=== PATIENT | female | born 1975 | race Caucasian/White ===

== ENCOUNTER 2016-12-07 07:30 | Inpatient (IN) | payer MEDICAID ==
[2017-02-02] MEDS ORDERED: cefOXitin 2 GM Vial ONE (06:36)
[2017-02-02] MEDS ORDERED: Scopolamine 1.5 MG Transdermal Patch TOP SCH (10:15)
[2017-02-02] MEDS ORDERED: Gabapentin 300 MG Cap PO ONE (10:15)
[2017-02-02] MEDS ORDERED: Celecoxib 200 MG Cap PO ONE (10:15)
[2017-02-02] MEDS ORDERED: Acetaminophen 500 MG Tab PO ONE (10:15)
[2017-02-02] MEDS ORDERED: Dextrose 5%-Lactated Ringers 1,000 ML IV SCH ×2 (10:45→15:30)
[2017-02-02] MEDS ORDERED: Propofol 200 MG/20 ML SDV ONE (11:10)
[2017-02-02] MEDS ORDERED: Succinylcholine 200 MG/10 ML MDV ONE (11:10)
[2017-02-02] MEDS ORDERED: Glycopyrrolate 0.2 MG/ML 5 ML MDV ONE (11:10)
[2017-02-02] MEDS ORDERED: Dexamethasone 4 MG/ML SDV ONE (11:10)
[2017-02-02] MEDS ORDERED: Neostigmine Methylsulfate 1 MG/ML 5 ML Syringe ONE (11:10)
[2017-02-02] MEDS ORDERED: Rocuronium 50 MG/5 ML Vial ONE ×2 (11:10→12:26)
[2017-02-02] MEDS ORDERED: Ondansetron 4 MG/2 ML SDV ONE (11:10)
[2017-02-02] MEDS ORDERED: Lidocaine 1% 2 ML ONE (11:21)
[2017-02-02] MEDS ORDERED: Lidocaine 2% 100 MG/5 ML Syringe IVPUSH ONE (11:30)
[2017-02-02] MEDS ORDERED: Ketamine 500 MG/5 ML MDV IV SCH (11:30)
[2017-02-02] MEDS ORDERED: Ropivacaine 60 ML, Dexamethasone 8 MG, EPINEPHrine 0.4 MG, Sodium Chloride 0.9% 17.6 ML NERVRT SCH ×4 (11:30)
[2017-02-02] MEDS: cefOXitin 2 GM in Premix Bag 1 BAG IV ONE ×2 (11:37→15:23)
[2017-02-02] MEDS ORDERED: hydrOXYzine HCl 100 MG/2 ML SDV IM ONE (14:15)
[2017-02-02] MEDS: Lidocaine 0.4%/D5W 2 GM/500 ML BAG IV SCH (15:23)
[2017-02-02] MEDS ORDERED: Metoclopramide 10 MG/2 ML SDV IVPUSH PRN (16:00)
[2017-02-02] MEDS ORDERED: SCOPOLAMINE PATCH CHECK TOP SCH (16:00)
[2017-02-02] MEDS ORDERED: Labetalol 20 MG/4 ML Syringe IVPUSH PRN (16:00)
[2017-02-02] MEDS ORDERED: MVI, Adult with Vitamin K 10 ML, Thiamine 200 MG, Chromium/Copper/Mang/Selen/Zn 1 ML in... IV SCH ×4 (16:00)
[2017-02-02] MEDS ORDERED: diphenhydrAMINE 50 MG/ML SDV IVPUSH PRN (16:00)
[2017-02-02] MEDS ORDERED: Ondansetron 4 MG/2 ML SDV IVPUSH PRN (16:00)
[2017-02-02] MEDS ORDERED: Pantoprazole 40 MG Vial IVPUSH SCH (16:00)
[2017-02-02] MEDS ORDERED: hydrOXYzine HCl 100 MG/2 ML SDV IM PRN (16:00)
[2017-02-02] MEDS: Gabapentin 250 MG/5 ML Solution ML 470 ML Bottle PO SCH ×2 (16:06→22:05)
[2017-02-02] MEDS: Acetaminophen Soln 650 MG/20.3 ML UD Cup PO SCH ×2 (16:51→22:05)
[2017-02-02] MEDS: Heparin Sodium 5,000 Units/ML Vial SUBCUT SCH (17:32)
[2017-02-02] MEDS: cefOXitin 2 GM in Sodium Chloride 0.9% 50 ML IV SCH ×2 (17:32→23:22)
[2017-02-03] MEDS: Acetaminophen Soln 650 MG/20.3 ML UD Cup PO SCH ×2 (03:08→09:48)
[2017-02-03] MEDS: Lidocaine 0.4%/D5W 2 GM/500 ML BAG IV SCH (03:11)
[2017-02-03] MEDS: Heparin Sodium 5,000 Units/ML Vial SUBCUT SCH (05:36)
[2017-02-03] MEDS: cefOXitin 2 GM in Sodium Chloride 0.9% 50 ML IV SCH (05:37)
[2017-02-03] MEDS ORDERED: Celecoxib 200 MG Cap PO SCH (08:00)
[2017-02-03] MEDS: Gabapentin 250 MG/5 ML Solution ML 470 ML Bottle PO SCH (09:48)
[2017-02-03 11:07] VITALS: BP 150/83
[2017-02-03] MEDS ORDERED: Pantoprazole 40 MG Delayed-Release Granules 1 Packet PO SCH (16:30)
[2017-02-04] MEDS ORDERED: Cyanocobalamin (Vitamin B12) 1,000 MCG/ML SDV IM ONE (09:00)
--- NOTE | 2017-02-05 08:43 | CR ---
UGI wo KUB HISTORY: eval R -Y GBP FINDINGS: Limited upper GI series was obtained without fluoroscopy. Water-soluble contrast was admini stered orally. Immediate along with 15 minute delayed images were obtained. Small gastric pouch is de monstrated. Contrast passes readily through the gastrojejunostomy into loops of jejunum. No obstructi on is identified. There is no contrast extravasation. Surgical drains are noted left upper quadrant. IMPRESSION: No postoperative complication identified status post Yinka-en-Y gastric bypass.
--- NOTE | 2017-02-05 11:30 | DISCH ---
FINAL DIAGNOSES: 1. Morbid obesity. 2. Marked hepatomegaly. 3. Mediastinal lipoma. 4. Left parasternal diaphragmatic hernia. OTHER DIAGNOSES: 1. Hypercholesterolemia. 2. Obstructive sleep apnea. OPERATIVE PROCEDURE: On 02/02/2017 is a diagnostic laparoscopy with lysis of adhesions with: 1. Laparoscopic sleeve gastrectomy. 2. Rock-Cut needle liver biopsy. 3. Excision of mediastinal lipoma. 4. Repair of the left parasternal diaphragmatic hernia. SUMMARY: This is a 41-year-old female was presenting with longstanding morbid obesity and increasingly significant comorbidities. After preop evaluation and discussion, she wished to proceed with a sleeve gastrectomy. This was done on the date of admission. She had quite a bit in the way of adhesions related to abdominal mesh placement. These were able to be taken down and worked around sufficiently to allow a laparoscopic approach to the procedure. She had fairly marked hepatomegaly, and liver biopsies were obtained and pending. She also had left parasternal diaphragmatic hernia, which contained a lipoma within it, which was excised, along with repair of the hernia. Postoperatively, she had no significant problems. She will be discharged home with a step-2 diet, which she should remain on for the next month. Otherwise, her only medications prior to hospitalization were vitamins and minerals. She will be instructed to hold those until after the first point, and she will be receiving Celebrex and Tylenol as needed for pain postoperatively. Follow up with Lilliana Maciel at [facility] on 02/08/2017.
--- NOTE | 2017-02-06 08:05 | OR ---
DATE OF PROCEDURE: 02/02/2017 PREOPERATIVE DIAGNOSIS: Morbid obesity. POSTOPERATIVE DIAGNOSES: 1. Morbid obesity. 2. Marked hepatomegaly. 3. Mediastinal lipoma. 4. Left parasternal diaphragmatic hernia. OPERATIVE PROCEDURES: Diagnostic laparoscopy with lysis of adhesions and; 1. Laparoscopic sleeve gastrectomy (09388). 2. Rock-Cut needle liver biopsy (19800). 3. Excision of mediastinal lipoma (44660). 4. Repair of left parasternal diaphragmatic hernia (86770). ANESTHESIA: General. SUPERVISOR METAL FURNITURE ASSEMBLY: Lilliana Maciel PA-C. INDICATIONS FOR PROCEDURE: This is a 41-year-old presenting with longstanding morbid obesity and increasingly significant comorbidities. After preoperative evaluation and discussion, she wished to proceed with a laparoscopic sleeve gastrectomy. Potential risks of the procedure including bleeding, infection, injury to underlying viscera, problems with leaks from the staple lines, as well as the possibility of cardiopulmonary, septic, or hemorrhagic complications leading to were discussed, and the patient wishes to proceed. DETAILS OF PROCEDURE: The patient was taken to the operating room and placed in a supine position. After general endotracheal anesthesia was induced, she was converted to a lithotomy position, and the abdomen was prepped and draped. At 15 cm inferior and 5 cm left of the xiphoid process, a transverse incision was made, and the peritoneal cavity entered under direct vision with an Optiview trocar inflated to 15 mmHg pressure with CO2. Laparoscope was reinserted. No underlying trocar insertion site injuries were seen. The area around the trocar was then inspected. The patient was noted to have quite a bit in the way of omental adhesions to the mesh. The camera port trocar had entered at a point just immediately above the level of the mesh. At that point, 2 left subcostal trocars were placed and adhesions between the mesh, as well as the right upper quadrant abdominal wall and the omentum, were taken down with Harmonic scalpel. Once the area was cleared enough to allow sufficient exposure for performance of the sleeve gastrectomy, bilateral subcostal transversus abdominis plane blocks were placed with the point of needle being visualized immediately underneath the peritoneum, i.e. within the transversus abdominis plane, and a standard injection placed bilaterally. Following this, 3 additional trocars were placed across the upper and midabdomen. The patient was noted to have a fairly marked hepatomegaly with liver being grossly fatty infiltrated. Rock-Cut needle biopsy was obtained from the left lobe of the liver. Minimal bleeding from the biopsy sites was controlled. The patient was also noted to have a fairly substantial left parasternal diaphragmatic hernia. This contained some omentum within it. The latter was reduced at this point, and the peritoneum within the parasternal hernia was dissected free. Lipomatous tissue within it was then resected and sent as a separate specimen. A small stab wound was then made superior to the uppermost present trocar, and using the laparoscopic suture passer, the parasternal hernia was closed with a series of 0 Vicryl sutures. Attention was then taken to the sleeve gastrectomy. The omentum along the portion of the greater curvature was then divided with Harmonic scalpel. This continued upward toward the spleen and the short gastric vessels, including the highest posterior short gastric vessels, were divided. Dissection then continued along the uppermost fundus of the stomach along the gastric cardia until the left crura was well defined. No hiatal hernia was identifiable at this point. Further dissection then continued with division of the omentum down at the level of a point around 2 cm proximal to the pylorus, again with a Harmonic scalpel. Some adhesions between the stomach and the retroperitoneum were then divided, so there was good clearance of the tissues behind the stomach through the area of intended gastric resection. At this point, the anterior aspect of the stomach, beginning at 0.2 cm proximal to the pylorus, was marked with electrocautery, extending from a right to left direction. Care was taken to lori the points of division such that there would be no stricturing or overtightening of the stomach at the point of the incisura angularis. Once these were marked out, the first 3 firings of the BROOKLYN stapler using BROOKLYN black loads was accomplished. At each firing, the stomach was elevated to visualize the stomach posteriorly to confirm there was not overtightening of the stomach at the incisura angularis. At that point, a 32- Estonian tube was placed orally per Anesthesia and manipulated along the lesser and greater curvature of the stomach and into the antrum. This was pulled up against the lesser curvature and suction applied. The remainder of the gastrectomy was then accomplished more or less flush with the gastric tube using a combination of reinforced black and purple loads. Once completion of the gastrectomy was accomplished, the staple line was inspected and found to be intact. The staple line was then reinforced with fibrin sealant, focusing on the proximal end at that level. The omentum was then placed up against the gastric staple line, along with fibrin sealant, and the remainder of the gastric staple line was then coated with some fibrin sealant as well and the omentum likewise pulled up against it where it appeared to remain without need for additional suturing. The gastrointestinal balloon catheter at that point had been pulled up to a point where the abdomen was more or less in the distal lesser curvature. Air was injected such that the gastric sleeve was distended while the pylorus was being compressed, and the area was irrigated with antibiotic-containing saline solution. No leaks or bleeding were seen. At that point, the gastrointestinal balloon catheter was then withdrawn. The gastric sleeve specimen was then retrieved through the left lateral trocar site. A single Jose Elias-Moore drain was placed along the proximal end of the sleeve gastrectomy up into the area of the splenic fossa. The trocars were then sequentially removed, and the incision was closed with some 4-0 Vicryl skin stitch, as was the drain affixed with 4-0 Vicryl stitch. The patient was taken to the recovery room in a satisfactory condition. There were no evident complications. Physician quality assurance assistant, Lilliana Maciel, played an essential role in assisting in this case, helping to position the patient, retract structures as needed, as well as suturing and cutting sutures as indicated. Her presence improved patient safety and decreased the operative time. Francisco Ewing MD /[id number]
--- NOTE | 2017-03-05 10:44 | OR ---
DATE OF PROCEDURE: 02/02/2017 PREOPERATIVE DIAGNOSIS: Morbid obesity. POSTOPERATIVE DIAGNOSES: 1. Morbid obesity. 2. Marked hepatomegaly. 3. Mediastinal lipoma. 4. Left parastomal diaphragmatic hernia. OPERATIVE PROCEDURES: Diagnostic laparoscopy with: 1. Laparoscopic sleeve gastrectomy (09828). 2. Rock-Cut needle liver biopsy (18701). 3. Excision of mediastinal lipoma (16594). 4. Repair of chronic left parasternal diaphragmatic hernia (29539). ANESTHESIA: General. AGRICULTURAL SCIENCES PROFESSOR: Lilliana Maciel PA-C. INDICATIONS FOR PROCEDURE: A 41-year-old female presenting with longstanding morbid obesity, increasingly significant comorbidities. After preoperative evaluation and discussion, she wished to proceed with a sleeve gastrectomy. Potential risks of the procedure including bleeding, infection, leaks from the staple lines, as well as possible cardiopulmonary, septic, or hemorrhagic complications leading to were discussed, and the patient wishes to proceed. DETAILS OF PROCEDURE: The patient was taken to the operating room, and after general endotracheal anesthesia was induced, she was placed in a lithotomy position and the abdomen prepped and draped. At 15 cm inferior, 5 cm left of xiphoid process, a transverse incision was made and the peritoneal cavity entered under direct vision with an Optiview trocar inflated to 15 mmHg pressure with CO2. Laparoscope was reinserted. No underlying trocar insertion site injuries were seen. Following this, bilateral subcostal transversus abdominis plane blocks were placed with direct visualization of the needle just inside the peritoneum within the transversus abdominis muscle layer, and standard solution was injected bilaterally. Following this, 5 additional trocars were placed across the upper and mid abdomen and general exploration undertaken. The patient was noted to have marked hepatomegaly with liver volume being grossly 2 to 3 times normal and the liver somewhat fatty infiltrated. Rock-Cut needle biopsies were obtained from left lobe of the liver. Minimal bleeding from the biopsy site was seen. The patient also noted to have a chronic appearing left parasternal hernia. This contained some lipomatous tissue within it. This was at that point incised in terms of the peritoneal surface, and the mediastinal lipoma was dissected free and removed from that area. The parasternal hernia was then repaired by means of laparoscopic suture passers with #1 Vicryl stitch through a small stab wound in the area just to the left of the epigastric trocar site. Once this was completed, we then turned our attention to the sleeve gastrectomy. The omentum was then divided away from the mid greater curvature of the stomach with Harmonic scalpel. This dissection with Harmonic scalpel was continued proximally up along the short gastric vessels, including the highest and posterior short gastric vessels. The attachments to the medial fundus were then dissected free from the left shneg of the diaphragm until the left sheng was well dissected free from the stomach. During the course of the dissection, no hiatal hernia was noted. The dissection then continued distally, dividing the omentum off the stomach down to a point roughly 2 cm proximal to the pylorus, which had previously been marked with electrocautery. At this point, the initial staple line from the point 2 cm proximal to the pylorus, along the antrum, and then underneath the incisura angularis was made with the cautery. Care was taken to avoid overtightening of the incisura angularis. At that point, the first three firings of the gastrectomy staple line were accomplished with BROOK[place]N black loads. Once this was accomplished, then a 32-Icelandic catheter was then placed orally per Anesthesia and manipulated along the lesser curvature and, from there, into the antrum. This was then positioned along the lesser curvature, where suction was applied. The remainder of the sleeve gastrectomy was then accomplished with a series of black and purple reinforced loads. At that point, the gastrectomy was completed and the specimen mobilized downward and toward the left. At that point, fibrin sealant was placed along the proximal end of the staple line and the omentum was then placed at that level and secured there with some 3-0 Vicryl stitch. Additional fibrin sealant was then placed across the antral staple line and to a lesser extent along the remainder of the staple line, and the omentum was pulled up where it adhered to the staple line and fibrin sealant. Leak test was then accomplished with injection of air into the remaining stomach while the pylorus was compressed, and the area was then irrigated with antibiotic-containing saline solution. No leaks or bleeding were seen. At this point, the stomach was delivered through the left lateral trocar site, and a Jose Elias- Moore drain was placed through that trocar site as well, positioned up against the proximal stent of the gastrectomy staple line, and from there into the splenic fossa. The trocars were then sequentially removed and the peritoneal cavity deflated. Incisions were closed with some 4-0 Vicryl skin stitch and drains affixed with a 4-0 Vicryl skin stitch. Dressing was applied. The patient was taken to the recovery room in satisfactory condition. Physician automotive parts counter assistant, Lilliana Maciel, played an essential role in assisting in this case, helping to position the patient, retract structures as needed, as well as suturing and cutting sutures when indicated. Her presence improved the patient safety and decreased the operative time. Francisco Ewing MD /[id number]
== END 2017-02-03 11:35 | disposition home or self-care (01) | DRG 620 ==
LOC: EDSTATUS 02-02 07:30 → JP.SDSSCHI 02-02 09:46 → JP.SDS 02-02 09:46 → JP.2SS 02-02 14:00
PROVIDERS: ADMIT Surgery; ATTEND Surgery
PROC: 0DB64Z3 Excision of Stomach, Percutaneous Endoscopic Approach, Vertical (ICD-10-PCS; principal; 2017-02-02)
PROC: 0WBC4ZX Excision of Mediastinum, Percutaneous Endoscopic Approach, Diagnostic (ICD-10-PCS; 2017-02-02)
PROC: 0BQT4ZZ Repair Diaphragm, Percutaneous Endoscopic Approach (ICD-10-PCS; 2017-02-02)
PROC: 0FB24ZX Excision of Left Lobe Liver, Percutaneous Endoscopic Approach, Diagnostic (ICD-10-PCS; 2017-02-02)
PROC: 3E0T3BZ Introduction of Anesthetic Agent into Peripheral Nerves and Plexi, Percutaneous Approach (ICD-10-PCS; 2017-02-02)
DX: E66.01 Morbid (severe) obesity due to excess calories (principal); K44.0 Diaphragmatic hernia with obstruction, without gangrene; Z68.43 Body mass index [BMI] 50.0-59.9, adult; R16.0 Hepatomegaly, not elsewhere classified; D17.4 Benign lipomatous neoplasm of intrathoracic organs; E78.00 Pure hypercholesterolemia, unspecified; G47.33 Obstructive sleep apnea (adult) (pediatric); Z88.8 Allergy status to other drugs, medicaments and biological substances
CPT/HCPCS: 36415; 74240; 74240-26; 82962; 86850; 86900; 86901; 88304; 88307; 88313; A9270-GY; C9113; J0171; J0330; J0694; J1100; J1644; J2001; J2405; J2704; J2710; J2795; J3010; J3410; J3411; J7030; J7042; J7050

== ENCOUNTER 2018-12-19 05:22 | Inpatient (IN) | payer MEDICAID ==
[2018-12-19] MEDS ORDERED: Acetaminophen 500 MG Tab PO ONE (05:45)
[2018-12-19] MEDS ORDERED: Dextrose 5%-Lactated Ringers 1,000 ML IV SCH (06:30)
[2018-12-19] MEDS ORDERED: Meropenem 500 MG SDV ONE (06:46)
[2018-12-19] MEDS ORDERED: Bupivacaine 0.5%/EPINEPHrine 1:200,000 50 ML MDV ONE (06:46)
[2018-12-19] MEDS ORDERED: Neostigmine Methylsulfate 1 MG/ML 5 ML Syringe ONE (06:58)
[2018-12-19] MEDS ORDERED: Glycopyrrolate 0.2 MG/ML 5 ML MDV ONE (06:58)
[2018-12-19] MEDS ORDERED: fentaNYL 250 MCG/5 ML SDV ONE (06:58)
[2018-12-19] MEDS ORDERED: Ondansetron 4 MG/2 ML SDV ONE (06:58)
[2018-12-19] MEDS ORDERED: Dexamethasone 4 MG/ML SDV ONE (06:58)
[2018-12-19] MEDS ORDERED: Succinylcholine 200 MG/10 ML MDV ONE (06:58)
[2018-12-19] MEDS ORDERED: Rocuronium 50 MG/5 ML Vial ONE (06:58)
[2018-12-19] MEDS ORDERED: Propofol 200 MG/20 ML SDV ONE (06:58)
[2018-12-19] MEDS ORDERED: ceFAZolin 2 GM in Sodium Chloride 0.9% 50 ML IV ONE (07:15)
[2018-12-19] MEDS ORDERED: Ketamine 50 MG in Sodium Chloride 0.9% 49.5 ML IV SCH (07:30)
[2018-12-19] MEDS ORDERED: Ketamine 500 MG/5 ML MDV IV SCH (07:30)
[2018-12-19] MEDS ORDERED: Lactated Ringers 1,000 ML ONE (08:08)
[2018-12-19] MEDS ORDERED: Lidocaine 0.5% 50 ML SDV ONE (08:12)
[2018-12-19] MEDS ORDERED: hydrOXYzine HCl 100 MG/2 ML SDV IM ONE (09:09)
[2018-12-19] MEDS ORDERED: Morphine 4 MG/ML Syringe IVPUSH PRN (09:47)
[2018-12-19] MEDS ORDERED: Ondansetron 4 MG/2 ML SDV IVPUSH PRN (09:47)
[2018-12-19] MEDS ORDERED: Morphine 2 MG/ML Syringe IVPUSH PRN (09:47)
[2018-12-19] MEDS ORDERED: oxyCODONE 5 MG Tab PO PRN (09:48)
[2018-12-19] MEDS: Dextrose 5%-Lactated Ringers 1,000 ML IV SCH ×2 (11:08→20:36)
[2018-12-19] MEDS: Acetaminophen 325 MG Tab PO PRN ×3 (11:38→23:40)
[2018-12-19] MEDS ORDERED: Sodium Ferric Gluconate Cmplex 250 MG in Sodium Chloride 0.9% 100 ML IV SCH (12:00)
[2018-12-19] MEDS: Pantoprazole 40 MG Tab.CR PO SCH (12:29)
[2018-12-19] MEDS: ceFAZolin 2 GM in Sodium Chloride 0.9% 50 ML IV SCH ×2 (14:13→22:15)
[2018-12-20] MEDS: Dextrose 5%-Lactated Ringers 1,000 ML IV SCH (03:56)
[2018-12-20] MEDS: ceFAZolin 2 GM in Sodium Chloride 0.9% 50 ML IV SCH (05:33)
[2018-12-20] MEDS: Pantoprazole 40 MG Tab.CR PO SCH (07:09)
[2018-12-20 07:16] VITALS: BP 108/60; PULSE 63
[2018-12-20] MEDS: Acetaminophen 325 MG Tab PO PRN (07:21)
[2018-12-20] MEDS ORDERED: Magnesium Hydroxide 400 MG/5 ML Susp 30 ML Cup PO ONE (08:09)
--- NOTE | 2018-12-20 08:50 | DISCH ---
ADMISSION DIAGNOSES: 1. Recurrent incarcerated incisional hernia. 2. Bony prominence, mid forehead. 3. Iron deficiency anemia. 4. Status post sleeve gastrectomy. 5. Vitamin B12 deficiency. DISCHARGE DIAGNOSES: 1. Diagnostic laparoscopy with lysis of adhesions. 2. Repair of recurrent incisional hernia with mesh. 3. Placement of Vicryl mesh. 4. Excision of bony prominence lesion, mid forehead. Date of surgery: 12/19/2018. Surgeon: Francisco Ewing MD. HISTORY: Rafaela Jaquez is a 43-year-old female with recurrent incisional hernia, mid abdomen, and a bony prominence lesion, mid forehead. After preoperative evaluation and discussion of possible risks and possible complications, she wished to proceed with surgical procedure. HOSPITAL COURSE: Rafaela had her surgery on 12/19/2018. She had no operative complications. She did receive iron infusions x2 while in the hospital. On postoperative day #1, she was able to be discharged to home with no complications. PHYSICAL EXAMINATION: GENERAL: Rafeala Jaquez is a 43-year-old female. VITAL SIGNS: Height is 5 feet 6 inches, weight is 247 pounds, BMI is 39.9. TPR 97.3, 63, 18, blood pressure 108/60. HEENT: Negative. NECK: Supple. HEART: Regular rate and rhythm. LUNGS: Clear. ABDOMEN: Dressings dry and intact. Abdominal binder is on. EXTREMITIES: Without peripheral edema. DISPOSITION: Discharged to home. CONDITION: Stable and improving. FOLLOWUP: Followup appointment with Lilliana Maciel PA-C, on 12/27/2018 at 11 a.m. HOME MEDICATIONS: 1. Oxycodone 5 mg every 6 hours p.r.n. pain, #28. 2. Milk of magnesia 30 mL, two were sent to home with the patient. She is to resume her home medications. DIET: Usual diet as tolerated. Drink 8 to 10 glasses of water a day. ACTIVITY: No lifting greater than 10 pounds for 6 weeks. Walk at least 6 times daily inside your home. Driving: Do not drive while on pain medication and for 1 week. Shower/bathing: May shower. DISCHARGE INSTRUCTIONS: Keep operative site clean and dry. Wound incision care. Wear abdominal binder with a pressure dressing over hernia site for 6 weeks. Notify provider if any fever, increased pain, swelling, redness, drainage, nausea, vomiting. SPECIAL INSTRUCTIONS: Use incentive spirometer 10 times every hour while awake for 1 week.
--- NOTE | 2018-12-30 10:58 | OR ---
DATE OF PROCEDURE: 12/19/2018 SURGEON: Francisco Ewing MD PREOPERATIVE DIAGNOSES: 1. Recurrent incisional hernia. 2. Prominent mass, right forehead area. POSTOPERATIVE DIAGNOSES: 1. Recurrent incisional hernia. 2. Bony prominence of right forehead area emanating from underlying skull. OPERATIVE PROCEDURES: Diagnostic laparoscopy with lysis of extensive adhesions: 1. Repair of recurrent incisional hernia with mesh (80785). 2. Placement of Vicryl mesh to limit recurrent adhesion formation between pelvic and abdominal wall, newly placed mesh, and underlying viscera ([id number]). 3. Excision of bony prominence, skull, right mid forehead ([id number]). ANESTHESIA: General. CHIEF RADIATION THERAPIST: Lilliana Maciel PA-C. INDICATIONS FOR PROCEDURE: This is a 43-year-old presenting with recurrent incisional hernia located in the area of the stomach to the right and above the umbilicus. She also has a mass, which initially appeared to be more soft tissue, based on limited mobility in the forehead just to the right of the midline. Plan is to proceed with diagnostic laparoscopy, laparotomy if necessary, and repair of the incisional hernia with mesh. Potential risks of that procedure including bleeding, infection, injury to underlying viscera, problems with mesh becoming infected or the hernia recurring were all reviewed, and the patient wishes to proceed. Additionally, potential risks of the excision of the mass in the forehead area were similarly gone over, including bleeding, infection, possible recurrence of lesion, and the patient wishes to proceed. DETAILS OF PROCEDURE: The patient was taken to the operating room and placed in a supine position. After general endotracheal anesthesia was induced, the abdomen was prepped and draped, and Neri catheter was inserted. At that point, the abdomen was entered from the left lateral site with Optiview trocar and peritoneal cavity inflated to 15 mmHg pressure with CO2. Three additional trocars were then placed, these being 5 mm trocars in the left abdomen and the patient was noted to have quite a bit in the way of adhesions to the previously placed mesh. These were taken down with Harmonic Scalpel, and at that point, the patient was noted to have recurrent hernia to the right of the previously placed mesh in the epigastric area. At that point, a 20.[address] mesh was selected and, after being soaked in antibiotic-containing saline solution, placed into the peritoneal cavity. A small stab wound over the center of the recurrent hernia was then made and the balloon catheter of the mesh system was pulled up through the abdominal wall and the balloon inflated. The mesh was then fixed circumferentially with 2 rows of absorbable tacking screws. The balloon catheter was then deflated and withdrawn. There appeared to be good fixation of the mesh in all directions. To limit recurrent adhesion formation between the two segments of mesh now present, a 12 inch segment of Vicryl mesh was placed underneath these areas, as well as down into the lower abdominal and pelvic hammer, thus displacing the small bowel and other viscera from those surfaces. Following this, the trocars were then removed. The fascia at the 12 mm site was closed with 0 Vicryl stitch and the skin with 4-0 Vicryl skin stitch and dressing applied. Attention was then taken to mass effect in the forehead area in one of the pre-existing skin creases. A transverse incision was made, carried down through the skin and subcutaneous tissue. The mass was then noted to be some exophytic bone. Soft tissues around this were then dissected down to the level of the adjacent skull surface and this bone excised with rongeurs to the point where it was essentially flush with the surrounding surface of the skull. The area of excision did not appear to get deeper than the bony surface, i.e. did not enter into the layers below that level. This area was then irrigated with antibiotic- containing saline solution as well and the soft tissues were approximated with some 4-0 Vicryl stitch deep and then a 6-0 Vicryl subcuticular stitch. Steri-Strip was applied. The patient was taken to the recovery room in satisfactory condition. Physician players assistant, Lilliana Maciel, played an essential role in assisting in this case, helping to position the patient, retract structures as needed, as well as suturing and cutting sutures when indicated. Her presence improved patient safety and decreased operative time. Francisco Ewing MD /[id number]
== END 2018-12-20 10:03 | disposition home or self-care (01) | DRG 354 ==
LOC: JP.SDS 05:22 → JP.SDSSCHI 05:22 → EDSTATUS 08:15 → JP.MS 09:00
PROVIDERS: ADMIT Surgery; ATTEND Surgery
PROC: 0WUF4JZ Supplement Abdominal Wall with Synthetic Substitute, Percutaneous Endoscopic Approach (ICD-10-PCS; principal; 2018-12-19)
PROC: 0NB00ZZ Excision of Skull, Open Approach (ICD-10-PCS; 2018-12-19)
PROC: 3E0M45Z Introduction of Adhesion Barrier into Peritoneal Cavity, Percutaneous Endoscopic Approach (ICD-10-PCS; 2018-12-19)
DX: K43.0 Incisional hernia with obstruction, without gangrene (principal); K90.9 Intestinal malabsorption, unspecified; D50.9 Iron deficiency anemia, unspecified; E53.8 Deficiency of other specified B group vitamins; M89.9 Disorder of bone, unspecified; E78.00 Pure hypercholesterolemia, unspecified; G47.33 Obstructive sleep apnea (adult) (pediatric); E66.01 Morbid (severe) obesity due to excess calories; E55.9 Vitamin D deficiency, unspecified; E53.9 Vitamin B deficiency, unspecified; R22.0 Localized swelling, mass and lump, head; K21.9 Gastro-esophageal reflux disease without esophagitis; I49.9 Cardiac arrhythmia, unspecified; F17.200 Nicotine dependence, unspecified, uncomplicated; Z98.84 Bariatric surgery status; Z79.899 Other long term (current) drug therapy; Z88.8 Allergy status to other drugs, medicaments and biological substances; Z99.81 Dependence on supplemental oxygen; Z68.39 Body mass index [BMI] 39.0-39.9, adult
CPT/HCPCS: 88304; 88311; 94762; A9270-GY; C1713; C1781; J0171; J0330; J0690; J1100; J2001; J2020; J2185; J2405; J2704; J2710; J2795; J2916; J3010; J3410; J3490; J7030; J7042; J7050; J7120

== ENCOUNTER 2018-12-29 06:27 | Emergency (ER) | payer MEDICAID ==
[2018-12-29 06:41] VITALS: BP 116/67; PULSE 74
[2018-12-29] MEDS ORDERED: Famotidine 20 MG Tab PO ONE (06:56)
[2018-12-29] MEDS ORDERED: predniSONE 20 MG Tab PO ONE (06:56)
[2018-12-29] MEDS ORDERED: diphenhydrAMINE 25 MG Cap PO ONE (07:00)
--- NOTE | 2018-12-29 07:05 | EDM.PDOC ---
ED HPI GENERAL MEDICAL PROBLEM - General Chief Complaint: Skin Complaint Stated Complaint: ITCHING HANDS AND FEET Time Seen by Provider: 12/29/18 06:50 Source of Information: Reports: Patient, Old Records, RN History Limitations: Reports: No Limitations - History of Present Illness INITIAL COMMENTS - FREE TEXT/NARRATIVE: 43 yo female presents with itchy palms and to a lesser degree itchy soles since this past Sunday. She has no rash anywhere or itching anywhere else. No difficulty breathing or swallowing. No hx of the same. Had taken a single dose of oxycodone after surgery, a week before this itching began only. Last took 50 mg of diphenhydramine about 4 hrs ago and it made her very sleepy and only barely took the edge off her itching. Onset: Gradual Onset Date: 12/27/18 Duration: Day(s): (3), Constant Location: Reports: Other (hands/feet only) Quality: Reports: Other (itching) Severity: Moderate Improves with: Reports: Medication (Benedryl helps only slightly) Worsens with: Reports: Other (unknown) Context: Reports: Other (Recent surgery) Associated Symptoms: Reports: No Other Symptoms Treatments HAND TWISTER: Reports: Other (see below) (Benedryl 50 mg 4 hrs ago) - Related Data Allergies Allergy/AdvReac Type Severity Reaction Status Date / Time hydromorphone HCl AdvReac Intermediate Nausea Verified 12/29/18 06:39 [From Dilaudid] Home Meds: Home Meds Cyanocobalamin (Vitamin B-12) [Vitamin B-12] 2,000 mcg SL DAILY 01/31/17 [ History] Pediatric Multivitamin Comb#30 [Gummies Children Multivitamin] 1 tab PO BID [History] Cholecalciferol (Vitamin D3) [Vitamin D] 5,000 unit PO .MWF 12/18/18 [History] Omeprazole Magnesium [Prilosec Otc] 40 mg PO DAILY 12/18/18 [History] Acetaminophen [Tylenol] 650 mg PO Q4H PRN tablet 12/20/18 [Rx] Magnesium Hydroxide [Milk of Magnesia] 30 ml PO DAILY PRN #2 ml 12/20/18 [Rx] oxyCODONE 5 mg PO Q6H PRN #28 tablet 12/20/18 [Rx] hydrOXYzine HCl [Atarax] 25 - 75 mg PO Q6H PRN #60 tab 12/29/18 [Rx] predniSONE [Prednisone] 20 mg PO BID #10 tablet 12/29/18 [Rx] Past Medical History HEENT History: Reports: Impaired Vision Respiratory History: Reports: Sleep Apnea Gastrointestinal History: Reports: GERD, Hiatal Hernia Genitourinary History: Reports: None HEALTH AND PHYSICAL EDUCATION TEACHER History: Reports: Other HEALTH AND PHYSICAL EDUCATION TEACHER 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 tied Musculoskeletal History: Reports: None Endocrine/Metabolic History: Reports: Obesity/BMI 30+ Hematologic History: Reports: Iron Deficiency - Infectious Disease History Infectious Disease History: Reports: Chicken Pox - Past Surgical History HEENT Surgical History: Reports: None Respiratory Surgical History: Reports: None GI Surgical History: Reports: Bariatric Procedure, Hernia Repair/Other, Other ( See Below) Other GI Surgeries/Procedures: umbilical fatty mass removed Female Surgical History: Reports: Tubal Ligation Endocrine Surgical History: Reports: None Musculoskeletal Surgical History: Reports: Carpal Tunnel Social & Family History - Family History Family Medical History: Noncontributory : Reports: Renal Calculus Oncologic: Reports: Lung - Tobacco Use Smoking Status *Q: Current Every Day Smoker Years of Tobacco use: 24 Packs/Tins Daily: 1 - Caffeine Use Caffeine Use: Reports: Coffee - Recreational Drug Use Recreational Drug Use: No ED ROS GENERAL - Review of Systems Review Of Systems: ROS reveals no pertinent complaints other than HPI. Constitutional: Reports: No Symptoms Skin: Reports: Pruritis (hands/feet bilaterally) ED EXAM, SKIN/RASH Exam: See Below Exam Limited By: No Limitations General Appearance: Alert, WD/WN, No Apparent Distress Eye Exam: Bilateral Eye: Normal Inspection Ears: Hearing Grossly Normal Nose: Normal Inspection, No Blood Throat/Mouth: Normal Inspection, Normal Lips, Normal Oropharynx, Normal Voice Neck: Normal Inspection Respiratory/Chest: No Respiratory Distress, Lungs Clear, Normal Breath Sounds, No Accessory Muscle Use Cardiovascular: Regular Rate, Rhythm, No Edema Back Exam: Normal Inspection Extremities: Normal Inspection, Normal Range of Motion, Non-Tender, No Pedal Edema Neurological: Alert, Oriented, CN II-XII Intact, Normal Cognition, No Motor/ Sensory Deficits Psychiatric: Normal Affect, Normal Mood Skin: Warm, Dry, Intact, Normal Color, No Rash Location, Skin: Upper Extremity, Right, Upper Extremity, Left, Lower Extremity, Right, Lower Extremity, Left Characteristics: Other (nothing visible) Course - Vital Signs Last Recorded V/S: Last Vital Signs Temp 36.7 C 12/29/18 06:40 Pulse 74 12/29/18 06:40 Resp 18 12/29/18 06:40 BP 116/67 12/29/18 06:40 Pulse Ox 98 12/29/18 06:40 - Orders/Labs/Meds Meds: Medications Discontinued Medications Generic Name Dose Route Start Last Admin Trade Name Freq PRN Reason Stop Dose Admin Famotidine 40 mg 12/29/18 06:56 Pepcid PO 12/29/18 06:57 ONETIME ONE Prednisone 20 mg 12/29/18 06:56 Prednisone PO 12/29/18 06:57 ONETIME ONE Departure - Departure Time of Disposition: 07:13 Disposition: Home, Self-Care 01 Condition: Good Clinical Impression: Palmar pruritus - Discharge Information *PRESCRIPTION DRUG MONITORING PROGRAM REVIEWED*: No *COPY OF PRESCRIPTION DRUG MONITORING REPORT IN PATIENT SUKHI: No Prescriptions: hydrOXYzine HCl [Atarax] 25 - 75 mg PO Q6H PRN #60 tab PRN Reason: Allergies predniSONE [Prednisone] 20 mg PO BID #10 tablet Referrals: Chata Krishnan CNM [Primary Care Provider] - Additional Instructions: Take prednisone as directed to try to stop the itching. Use the hydroxyzine as needed for itching. Take famotidine 20 mg every 12 hrs starting tomorrow morning as needed. Keep a diary of foods you have eaten since onset of your symptoms. Recheck later this week in the clinic if your symptoms persist. Return for difficulty breathing or swallowing.
== END 2018-12-29 07:24 | disposition home or self-care (01) ==
LOC: JP.ED 06:27
DX: L29.9 Pruritus, unspecified (principal); F17.210 Nicotine dependence, cigarettes, uncomplicated
CPT/HCPCS: 99282; A9270

== ENCOUNTER 2019-08-15 07:09 | Inpatient (IN) | payer MEDICAID ==
[2019-08-15] MEDS ORDERED: Morphine 4 MG/ML Syringe IVPUSH ONE ×2 (07:48→10:48)
[2019-08-15] MEDS ORDERED: Ondansetron 4 MG/2 ML SDV IVPUSH ONE ×2 (07:48→08:49)
[2019-08-15] MEDS ORDERED: Sodium Chloride 0.9% 1,000 ML IV ONE ×2 (07:49→08:39)
--- NOTE | 2019-08-15 07:58 | EDM.PDOC ---
ED HPI GENERAL MEDICAL PROBLEM - General Chief Complaint: Abdominal Pain Stated Complaint: ABD PAIN Time Seen by Provider: 08/15/19 07:40 Source of Information: Reports: Patient, RN History Limitations: Reports: No Limitations - History of Present Illness INITIAL COMMENTS - FREE TEXT/NARRATIVE: 44 yo female patient comes to the ED with c/o supraumbilical abd pain that started last evening about 1900. She was able to eat some pizza for supper about 1700 last night. The pain is constant and sharp and she rates it 9/10. Rafaela has a history of a gastric sleeve in 2018 and a hernia repair in 2019. She still has her gallbladder. The pain that she is experiencing is similar to the pain she felt with her previous hernia. She states that she had a normal BM this morning and that she is passing gas. She tried 975mg of tylenol last evening about 23:30 that did not help at all. Rafaela states that she has nausea and vomiting. Denies any blood in her emesis. Denies any urinary or respiratory symptoms. Denies chest pain or history of cardiac problems. 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 Abdominal Pain Score (Numeric/FACES): 9 - Related Data Allergies Allergy/AdvReac Type Severity Reaction Status Date / Time hydromorphone HCl AdvReac Intermediate Nausea Verified 12/29/18 06:39 [From Dilaudid] Home Meds: Home Meds Cyanocobalamin (Vitamin B-12) [Vitamin B-12] 2,000 mcg SL DAILY 01/31/17 [History] Pediatric Multivitamin Comb#30 [Gummies Children Multivitamin] 1 tab PO BID 01/31/17 [History] Cholecalciferol (Vitamin D3) [Vitamin D] 5,000 unit PO .MWF 12/18/18 [History] Omeprazole Magnesium [Prilosec Otc] 40 mg PO DAILY 12/18/18 [History] Acetaminophen [Tylenol] 650 mg PO Q4H PRN tablet 12/20/18 [Rx] Past Medical History HEENT History: Reports: Impaired Vision Respiratory History: Reports: Sleep Apnea Gastrointestinal History: Reports: GERD, Hiatal Hernia Genitourinary History: Reports: None 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 COLLECTIONS DRIVER 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 tied Musculoskeletal History: Reports: None Endocrine/Metabolic History: Reports: Obesity/BMI 30+ Hematologic History: Reports: Iron Deficiency - Infectious Disease History Infectious Disease History: Reports: Chicken Pox - Past Surgical History HEENT Surgical History: Reports: None Respiratory Surgical History: Reports: None GI Surgical History: Reports: Bariatric Procedure, Hernia Repair/Other, Other (See Below) Other GI Surgeries/Procedures: umbilical fatty mass removed Female Surgical History: Reports: Tubal Ligation Endocrine Surgical History: Reports: None Musculoskeletal Surgical History: Reports: Carpal Tunnel Social & Family History - Family History Family Medical History: Noncontributory : Reports: Renal Calculus Oncologic: Reports: Lung - Tobacco Use Smoking Status *Q: Heavy Tobacco Smoker Years of Tobacco use: 20 Packs/Tins Daily: 1 - Caffeine Use Caffeine Use: Reports: Coffee - Recreational Drug Use Recreational Drug Use: No ED ROS GENERAL - Review of Systems Review Of Systems: See Below Constitutional: Reports: Decreased Appetite HEENT: Reports: No Symptoms Respiratory: Reports: No Symptoms Cardiovascular: Reports: No Symptoms Endocrine: Reports: No Symptoms GI/Abdominal: Reports: Abdominal Pain, Diarrhea, Decreased Appetite, Flatus, Nausea, Vomiting : Reports: No Symptoms Musculoskeletal: Reports: No Symptoms Skin: Reports: No Symptoms Neurological: Reports: No Symptoms Psychiatric: Reports: No Symptoms Hematologic/Lymphatic: Reports: No Symptoms Immunologic: Reports: No Symptoms ED EXAM, GI/ABD - Physical Exam Exam: See Below Exam Limited By: No Limitations General Appearance: Alert, WD/WN, Moderate Distress Head: Atraumatic, Normocephalic Neck: Normal Inspection Respiratory/Chest: No Respiratory Distress, Lungs Clear, Normal Breath Sounds, Chest Non-Tender Cardiovascular: Regular Rate, Rhythm, No Gallop, No Murmur GI/Abdominal Exam: Guarding, Tender (supraumbilical), Abnormal Bowel Sounds (absent), Other (area of firmness noted to the supraumbilical region. ) (Female) Exam: Deferred Back Exam: Normal Inspection Extremities: Normal Inspection Neurological: Alert, Oriented, Normal Cognition Psychiatric: Normal Affect, Normal Mood Skin Exam: Other (clammy) EKG INTERPRETATION EKG Date: 08/15/19 Time: 09:21 Rhythm: NSR EKG Interpretation Comments: no acute concerns with EKG Course - Vital Signs Last Recorded V/S: Last Vital Signs Temp 94.4 F L 08/15/19 07:27 Pulse 61 08/15/19 07:27 Resp 17 08/15/19 07:27 BP 131/77 08/15/19 07:27 Pulse Ox 96 08/15/19 07:27 - Orders/Labs/Meds Orders: Active Orders 24 hr Category Date Time Status EKG Documentation Completion [RC] ASDIRECTED Care 08/15/19 09:12 Active Dextrose 5%-Lactated Ringers 1,000 ml Med 08/15/19 10:45 Active IV ASDIRECTED Ondansetron [Zofran] Med 08/15/19 12:00 Active 4 mg IVPUSH Q4H PRN Pantoprazole [ProTONIX IV] Med 08/15/19 21:00 Active 40 mg IV Q12H NG [Nasogastric Orogastric Tube Insertion] [OM.PC] Ot 08/15/19 10:16 Ordered Routine EKG 12 Lead [EK] Routine Ther 08/15/19 09:11 Ordered Medication Orders Dextrose/Lactated Ringer's (Dextrose 5%-Lactated Ringers) 1,000 mls @ 150 mls/hr IV ASDIRECTED ALISA Ondansetron HCl (Zofran) 4 mg IVPUSH Q4H PRN PRN Reason: Nausea Pantoprazole Sodium (Protonix Iv) 40 mg IV Q12H [facility] Labs: Laboratory Tests 08/15/19 08/15/19 08/15/19 Range/Units 08:01 08:01 09:48 WBC 8.3 (4.5-11.0) K/uL RBC 5.02 (3.30-5.50) M/uL Hgb 14.4 (12.0-15.0) g/dL Hct 44.2 (36.0-48.0) % MCV 88 (80-98) fL MCH 29 (27-31) pg MCHC 33 (32-36) % Plt Count 183 (150-400) K/uL Sodium 138 L (140-148) mmol/L Potassium 4.6 (3.6-5.2) mmol/L Chloride 103 (100-108) mmol/L Carbon Dioxide 23 (21-32) mmol/L Anion Gap 16.6 H (5.0-14.0) mmol/L BUN 21 H D (7-18) mg/dL Creatinine 0.9 (0.6-1.0) mg/dL Est Cr Clr Drug Dosing 71.03 mL/min Estimated GFR (MDRD) > 60 (>60) Glucose 141 H (74-106) mg/dL Calcium 9.4 (8.5-10.1) mg/dL Total Bilirubin 0.4 (0.2-1.0) mg/dL AST 29 (15-37) U/L ALT 26 (12-78) U/L Alkaline Phosphatase 40 L (46-116) U/L C-Reactive Protein 0.10 (0.0-0.3) mg/dL Total Protein 7.9 (6.4-8.2) g/dL Albumin 4.3 (3.4-5.0) g/dL Globulin 3.6 H (2.3-3.5) g/dL Albumin/Globulin Ratio 1.2 (1.2-2.2) Urine Color Yellow (YELLOW) Urine Appearance Clear (CLEAR) Urine pH 7.0 (5.0-8.0) Ur Specific Mustang 1.015 (1.008-1.030) Urine Protein Negative (NEGATIVE) mg/dL Urine Glucose (UA) Negative (NEGATIVE) mg/dL Urine Ketones Negative (NEGATIVE) mg/dL Urine Occult Blood Negative (NEGATIVE) Urine Nitrite Negative (NEGATIVE) Urine Bilirubin Negative (NEGATIVE) Urine Urobilinogen 0.2 (0.2-1.0) EU/dL Ur Leukocyte Esterase Negative (NEGATIVE) Urine RBC 0-5 (0-5) Urine WBC 0-5 (0-5) Ur Epithelial Cells Moderate Amorphous Sediment Not seen Urine Bacteria Rare Urine Mucus Moderate Meds: Medications Generic Name Dose Route Start Last Admin Trade Name Freq PRN Reason Stop Dose Admin Dextrose/Lactated Ringer's 1,000 mls @ 150 mls/hr 08/15/19 10:45 Dextrose 5%-Lactated Ringers IV ASDIRECTED ALISA Ondansetron HCl 4 mg 08/15/19 12:00 Zofran IVPUSH Q4H PRN Nausea Pantoprazole Sodium 40 mg 08/15/19 21:00 Protonix Iv IV Q12H ALISA Discontinued Medications Generic Name Dose Route Start Last Admin Trade Name Stacy PRN Reason Stop Dose Admin Sodium Chloride 1,000 mls @ 999 mls/hr 08/15/19 07:49 08/15/19 07:56 Normal Saline IV 08/15/19 08:49 999 mls/hr .BOLUS ONE Administration Sodium Chloride 1,000 mls @ 999 mls/hr 08/15/19 08:39 08/15/19 09:08 Normal Saline IV 08/15/19 09:39 999 mls/hr .BOLUS ONE Administration Sodium Chloride 100 mls @ 3 mls/sec 08/15/19 09:00 08/15/19 09:01 Normal Saline IV 3 mls/sec ASDIRECTED ALISA Administration Iopamidol 150 ml 08/15/19 08:51 08/15/19 09:01 Isovue-300 (61%) IV 08/15/19 08:52 150 ml ONETIME ONE Administration Morphine Sulfate 2 mg 08/15/19 07:48 08/15/19 07:57 Morphine IVPUSH 08/15/19 07:49 2 mg ONETIME ONE Administration Ondansetron HCl 4 mg 08/15/19 07:48 08/15/19 07:55 Zofran IVPUSH 08/15/19 07:49 4 mg ONETIME ONE Administration Ondansetron HCl 4 mg 08/15/19 08:49 08/15/19 08:53 Zofran IVPUSH 08/15/19 08:50 4 mg ONETIME ONE Administration Pantoprazole Sodium 40 mg 08/15/19 09:11 08/15/19 09:15 Protonix Iv IVPUSH 08/15/19 09:12 40 mg ONETIME ONE Administration Prochlorperazine Edisylate 10 mg 08/15/19 10:14 08/15/19 10:21 Compazine IVPUSH 08/15/19 10:15 10 mg ONETIME ONE Administration Sodium Chloride 10 ml 08/15/19 08:51 08/15/19 09:01 Saline Flush FLUSH 08/15/19 08:52 10 ml ONETIME ONE Administration - Radiology Interpretation Free Text/Narrative:: CT reading: moderate small bowel obstruction and cholelithiasis - Re-Assessments/Exams Free Text/Narrative Re-Assessment/Exam: 08/15/19 09:12 patient is back from CT. she is complaining of heartburn rates 6/10. her abd pain is better- rates it /10. will get an EKG and give IVP protonix. awaiting CT results. Free Text/Narrative Re-Assessment/Exam: 08/15/19 10:37 NG placed per nursing staff. Departure - Departure Time of Disposition: 10:01 Disposition: Admitted As Inpatient 65 Clinical Impression: Small bowel obstruction due to adhesions, Abdominal pain - Discharge Information *PRESCRIPTION DRUG MONITORING PROGRAM REVIEWED*: No *COPY OF PRESCRIPTION DRUG MONITORING REPORT IN PATIENT SUKHI: No Referrals: Chata Krishnan CNM [Primary Care Provider] - Forms: ED Department Discharge Care Plan Goals: Admit to hospital per Dr. Ewing- Sepsis Event Note (ED) - Evaluation Sepsis Screening Result: No Definite Risk - Focused Exam Vital Signs: Vital Signs Temp Pulse Resp BP Pulse Ox 08/15/19 07:27 94.4 F L 61 17 131/77 96 08/15/19 07:25 94.4 F L 61 17 131/77 96 - My Orders Last 24 Hours: My Active Orders 08/15/19 09:11 EKG 12 Lead [EK] Routine 08/15/19 09:12 EKG Documentation Completion [RC] ASDIRECTED 08/15/19 10:16 NG [Nasogastric Orogastric Tube Insertion] [OM.PC] Routine - Assessment/Plan Last 24 Hours: My Active Orders 08/15/19 09:11 EKG 12 Lead [EK] Routine 08/15/19 09:12 EKG Documentation Completion [RC] ASDIRECTED 08/15/19 10:16 NG [Nasogastric Orogastric Tube Insertion] [OM.PC] Routine Plan: Dr. Saunders consulted Dr Ewing for admission.
--- NOTE | 2019-08-15 08:04 | EDM.PDOC ---
ED HPI GENERAL MEDICAL PROBLEM - General Chief Complaint: Abdominal Pain Stated Complaint: ABD PAIN Abdominal Pain Score (Numeric/FACES): 9 - Related Data Allergies Allergy/AdvReac Type Severity Reaction Status Date / Time hydromorphone HCl AdvReac Intermediate Nausea Verified 12/29/18 06:39 [From Dilaudid] Home Meds: Home Meds Cyanocobalamin (Vitamin B-12) [Vitamin B-12] 2,000 mcg SL DAILY 01/31/17 [History] Pediatric Multivitamin Comb#30 [Gummies Children Multivitamin] 1 tab PO BID 01/31/17 [History] Cholecalciferol (Vitamin D3) [Vitamin D] 5,000 unit PO .MWF 12/18/18 [History] Omeprazole Magnesium [Prilosec Otc] 40 mg PO DAILY 12/18/18 [History] Acetaminophen [Tylenol] 650 mg PO Q4H PRN tablet 12/20/18 [Rx] Past Medical History HEENT History: Reports: Impaired Vision Respiratory History: Reports: Sleep Apnea Gastrointestinal History: Reports: GERD, Hiatal Hernia Genitourinary History: Reports: None 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 DIRECTOR 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 tied Musculoskeletal History: Reports: None Endocrine/Metabolic History: Reports: Obesity/BMI 30+ Hematologic History: Reports: Iron Deficiency - Infectious Disease History Infectious Disease History: Reports: Chicken Pox - Past Surgical History HEENT Surgical History: Reports: None Respiratory Surgical History: Reports: None GI Surgical History: Reports: Bariatric Procedure, Hernia Repair/Other, Other (See Below) Other GI Surgeries/Procedures: umbilical fatty mass removed Female Surgical History: Reports: Tubal Ligation Endocrine Surgical History: Reports: None Musculoskeletal Surgical History: Reports: Carpal Tunnel Social & Family History - Family History Family Medical History: Noncontributory : Reports: Renal Calculus Oncologic: Reports: Lung - Tobacco Use Smoking Status *Q: Heavy Tobacco Smoker Years of Tobacco use: 20 Packs/Tins Daily: 1 - Caffeine Use Caffeine Use: Reports: Coffee - Recreational Drug Use Recreational Drug Use: No Course - Vital Signs Last Recorded V/S: Last Vital Signs Temp 34.7 C L 08/15/19 07:27 Pulse 61 08/15/19 07:27 Resp 17 08/15/19 07:27 BP 131/77 08/15/19 07:27 Pulse Ox 96 08/15/19 07:27 - Orders/Labs/Meds Orders: Active Orders 24 hr Category Date Time Status C-REACTIVE PROTEIN [CHEM] Stat Lab 08/15/19 07:48 Ordered CBC W/O DIFF,HEMOGRAM [HEME] Stat Lab 08/15/19 07:48 Ordered COMPREHENSIVE METABOLIC PN,CMP [CHEM] Stat Lab 08/15/19 07:48 Ordered UA W/MICROSCOPIC [URIN] Stat Lab 08/15/19 07:50 Ordered Sodium Chloride 0.9% [Normal Saline] 1,000 ml Med 08/15/19 07:49 Active IV .BOLUS Medication Orders Sodium Chloride (Normal Saline) 1,000 mls @ 999 mls/hr IV .BOLUS ONE Stop: 08/15/19 08:49 Meds: Medications Generic Name Dose Route Start Last Admin Trade Name Freq PRN Reason Stop Dose Admin Sodium Chloride 1,000 mls @ 999 mls/hr 08/15/19 07:49 Normal Saline IV 08/15/19 08:49 .BOLUS ONE Discontinued Medications Generic Name Dose Route Start Last Admin Trade Name Freq PRN Reason Stop Dose Admin Morphine Sulfate 2 mg 08/15/19 07:48 Morphine IVPUSH 08/15/19 07:49 ONETIME ONE Ondansetron HCl 4 mg 08/15/19 07:48 Zofran IVPUSH 08/15/19 07:49 ONETIME ONE Departure - Discharge Information Referrals: Chata Krishnan CNM [Primary Care Provider] - Sepsis Event Note (ED) - Evaluation Sepsis Screening Result: No Definite Risk - Focused Exam Vital Signs: Vital Signs Temp Pulse Resp BP Pulse Ox 08/15/19 07:27 34.7 C L 61 17 131/77 96 08/15/19 07:25 34.7 C L 61 17 131/77 96
[2019-08-15] MEDS ORDERED: Sodium Chloride 0.9% 10 ML Syringe FLUSH ONE (08:51)
[2019-08-15] MEDS ORDERED: Iopamidol 612 MG/ML 500 ML Multipack Bottle IV ONE (08:51)
[2019-08-15] MEDS ORDERED: Sodium Chloride 0.9% 100 ML IV SCH (09:00)
[2019-08-15] MEDS ORDERED: Pantoprazole 40 MG Vial IVPUSH ONE (09:11)
--- NOTE | 2019-08-15 09:41 | CT ---
Abdomen Pelvis w Cont CLINICAL HISTORY: Abdominal pain COMPARISON: 2016. TECHNIQUE: Transverse scans were obtained from the base of the lungs to the pubic symphysis following oral contrast and IV infusion of contrast.Auto dosage reduction and iterative reconstructiontechniques employed. FINDINGS: Patient has moderate diffuse fluid distended loops of small bowel in the right and mid abdomen. There is an apparent transition point in the infraumbilical region anteriorly. This may be related to previous ventral hernia repair. There is no obvious hernia recurrence. There is no obvious incarceration. The lung bases are clear. The liver show some mild intrahepatic biliary dilatation. The gallbladder is stone filled. There may be some mild wall thickening. Pericholecystic fat is well-preserved common bile duct is dilated measuring 14 mm within the pancreatic head. No definite ductal stone is identified.. The spleen is a normal size. The pancreas shows no mass or biliary dilatation. The left adrenal gland contains a 12 mm and a 17 mm low-attenuation chills. Density measurements are nonspecific on the postcontrast study The kidneys show no mass, stones or hydronephrosis. The ureters have a normal course and contour. There is a 5 mm calcification contiguous to the dome of the bladder which appears to be a subserosal uterine calcification The aorta has a normal contour There is no suspicious retroperitoneal adenopathy. IMPRESSION: Moderate small bowel distention which is likely small bowel obstruction. Transition appears to be in the proximal ileum near the umbilicus. Patient has had previous ventral hernia repair. Patient has also had previous bariatric surgery There are 2 low-attenuation nodules in the left adrenal gland Cholelithiasis with intrahepatic and common bile duct dilatation at 14 mm. No ductal stone is seen
[2019-08-15] MEDS ORDERED: Prochlorperazine 10 MG/2 ML SDV IVPUSH ONE (10:14)
[2019-08-15] MEDS: Dextrose 5%-Lactated Ringers 1,000 ML IV SCH ×2 (11:19→17:56)
[2019-08-15] MEDS: Ondansetron 4 MG/2 ML SDV IVPUSH PRN (19:48)
[2019-08-15] MEDS ORDERED: Morphine 2 MG/ML Syringe IVPUSH PRN (20:02)
[2019-08-15] MEDS: Pantoprazole 40 MG Vial IV SCH (21:26)
[2019-08-16] MEDS: Ondansetron 4 MG/2 ML SDV IVPUSH PRN ×2 (00:11→04:05)
[2019-08-16] MEDS: Dextrose 5%-Lactated Ringers 1,000 ML IV SCH ×2 (00:46→22:15)
[2019-08-16] MEDS ORDERED: Bupivacaine 0.5% 50 ML MDV ONE (07:00)
[2019-08-16] MEDS ORDERED: Lidocaine 1% with EPINEPHrine 1:100,000 50 ML MDV ONE (07:00)
[2019-08-16] MEDS ORDERED: Propofol 200 MG/20 ML SDV ONE (07:09)
[2019-08-16] MEDS ORDERED: fentaNYL 250 MCG/5 ML SDV ONE ×2 (07:09→10:39)
[2019-08-16] MEDS ORDERED: Neostigmine Methylsulfate 1 MG/ML 5 ML Syringe ONE (07:09)
[2019-08-16] MEDS ORDERED: Succinylcholine 200 MG/10 ML MDV ONE (07:09)
[2019-08-16] MEDS ORDERED: Glycopyrrolate 0.2 MG/ML 5 ML MDV ONE (07:09)
[2019-08-16] MEDS ORDERED: Ondansetron 4 MG/2 ML SDV ONE (07:09)
[2019-08-16] MEDS ORDERED: Rocuronium 50 MG/5 ML Vial ONE ×2 (07:09→09:58)
[2019-08-16] MEDS ORDERED: Dexamethasone 4 MG/ML SDV ONE (07:09)
[2019-08-16] MEDS ORDERED: Magnesium Sulfate 5.7 GM in Sodium Chloride 0.9% 250 ML IV ONE (08:00)
[2019-08-16] MEDS ORDERED: Ketamine 500 MG/5 ML MDV IV SCH (08:00)
[2019-08-16] MEDS ORDERED: Naloxone 0.4 MG/ML SDV IV PRN (08:00)
[2019-08-16] MEDS ORDERED: cefOXitin 2 GM in Sodium Chloride 0.9% 50 ML IV ONE (08:00)
[2019-08-16] MEDS ORDERED: Ketamine 50 MG in Sodium Chloride 0.9% 49.5 ML IV SCH (08:00)
[2019-08-16] MEDS ORDERED: Magnesium Sulfate 3.6 GM in Sodium Chloride 0.9% 100 ML IV SCH (08:00)
[2019-08-16] MEDS ORDERED: Meropenem 500 MG SDV ONE (08:19)
[2019-08-16] MEDS: fentaNYL/Normal Saline 600 MCG/30 ML PCA Vial IV PRN (09:09)
[2019-08-16] MEDS ORDERED: Lactated Ringers 1,000 ML ONE (09:25)
[2019-08-16] MEDS ORDERED: hydrOXYzine HCL 100 MG/2 ML SDV IM ONE (12:09)
[2019-08-16] MEDS ORDERED: Labetalol 100 MG/20 ML MDV IVPUSH PRN (12:52)
[2019-08-16] MEDS: Pantoprazole 40 MG Vial IV SCH (12:59)
[2019-08-16] MEDS ORDERED: Cyclobenzaprine 10 MG Tab PO PRN (13:07)
[2019-08-16] MEDS ORDERED: hydrOXYzine HCL 100 MG/2 ML SDV IM PRN (14:00)
[2019-08-16] MEDS ORDERED: Albuterol/Ipratropium 3.0-0.5 MG/3 ML Neb Soln INH PRN (14:00)
[2019-08-16] MEDS ORDERED: diphenhydrAMINE 50 MG/ML SDV IVPUSH PRN (14:00)
[2019-08-16] MEDS ORDERED: Labetalol 20 MG/4 ML Syringe IVPUSH PRN (14:00)
[2019-08-16] MEDS ORDERED: Calcium Gluconate 10% 1 GM/10 ML SDV IVPUSH PRN (14:00)
[2019-08-16] MEDS ORDERED: Scopolamine 1.5 MG Transdermal Patch TOP SCH (14:00)
[2019-08-16] MEDS: Acetaminophen 500 MG Tab PO SCH ×2 (14:22→22:16)
[2019-08-16] MEDS: cefOXitin 2 GM in Sodium Chloride 0.9% 50 ML IV SCH ×2 (14:24→20:53)
[2019-08-16] MEDS: Sodium Ferric Gluconate Cmplex 250 MG in Sodium Chloride 0.9% 100 ML IV SCH (14:27)
[2019-08-16] MEDS ORDERED: MVI, Adult with Vitamin K 10 ML, Thiamine 200 MG, Chromium/Copper/Mang/Selen/Zn 1 ML in... IV SCH ×4 (16:00)
--- NOTE | 2019-08-16 18:32 | PN ---
DATE OF SERVICE: 08/16/2019 Overnight, the patient continued to be uncomfortable, having some nausea. Abdominal x-ray shows continued marked distention of small bowel with little if any air in the colon or rectum. Given this, the plan will be to proceed with exploratory laparotomy and release of bowel obstruction, possible bowel resection. The patient has a mesh, and it appears that the bowel obstruction is related to the mesh. She is aware that we may need to take the mesh out which would make it fairly high risk of getting a recurrent hernia. Otherwise, she remains fairly heavy after sleeve gastrectomy, and we will look at possibly imbricating a sleeve gastrectomy concurrently. Potential risks of these procedures including bleeding, infection, leaks from the gastric or small bowel sites as well as possibility of cardiopulmonary, septic, or hemorrhagic complications leading to were discussed, and the patient wishes to proceed. Surgery will be undertaken later on this morning. Francisco Ewing MD /[id number]
[2019-08-16] MEDS: Heparin Sodium 5,000 Units/ML Vial SUBCUT SCH (20:46)
[2019-08-16] MEDS ORDERED: Pantoprazole 40 MG Vial IV SCH (21:00)
[2019-08-17] MEDS: cefOXitin 2 GM in Sodium Chloride 0.9% 50 ML IV SCH ×4 (02:36→20:22)
[2019-08-17] MEDS: fentaNYL/Normal Saline 600 MCG/30 ML PCA Vial IV PRN (03:57)
[2019-08-17] MEDS ORDERED: Iopamidol 612 MG/ML 50 ML SDV PO ONE (04:00)
[2019-08-17] MEDS: Dextrose 5%-Lactated Ringers 1,000 ML IV SCH ×2 (04:42→12:08)
[2019-08-17] MEDS: Acetaminophen 500 MG Tab PO SCH ×3 (05:54→22:08)
[2019-08-17] MEDS: Heparin Sodium 5,000 Units/ML Vial SUBCUT SCH ×2 (07:52→20:24)
[2019-08-17] MEDS: Potassium Phos in 0.9 % NaCl 15 MMOL in Premix Bag 1 BAG IV SCH ×8 (09:14→17:25)
[2019-08-17] MEDS: Ondansetron 4 MG/2 ML SDV IVPUSH PRN (10:54)
[2019-08-17] MEDS: Metoclopramide 10 MG/2 ML SDV IVPUSH PRN ×2 (11:24→17:40)
[2019-08-17] MEDS: SCOPOLAMINE PATCH CHECK TOP SCH (11:28)
[2019-08-17] MEDS: Celecoxib 200 MG Cap PO SCH ×2 (11:28→20:25)
--- NOTE | 2019-08-17 13:23 | PN ---
DATE OF SERVICE: 08/17/2019 The patient has been afebrile with stable vital signs. Her pain control appeared to be fairly good. The urine output is still a little low, and we will keep the IV rate running at a high rate until around 6 p.m. Creatinine is otherwise stable. Her upper GI x-ray looked good following partial gastrectomy yesterday and will go up to a step-2 diet today. Her phosphate is quite low. We will give her some supplementary potassium phosphate and a second dose of the iron gluconate today as well. Otherwise, will undergo a closure of the abdominal incision tomorrow, maximize activity and work with pulmonary toilet. Francisco Ewing MD /[id number]
[2019-08-17] MEDS: Sodium Ferric Gluconate Cmplex 250 MG in Sodium Chloride 0.9% 100 ML IV SCH (14:08)
[2019-08-17] MEDS: MVI, Adult with Vitamin K 10 ML, Thiamine 200 MG, Chromium/Copper/Mang/Selen/Zn 1 ML in... IV SCH ×4 (17:25)
[2019-08-17] MEDS ORDERED: Dextrose 5%-Lactated Ringers 1,000 ML IV SCH (18:00)
[2019-08-17] MEDS ORDERED: Pantoprazole 40 MG Tab.CR PO SCH (21:00)
[2019-08-17] MEDS: OMEPRAZOLE 40 MG PO SCH (22:14)
[2019-08-18] MEDS: Acetaminophen 500 MG Tab PO SCH ×3 (06:10→22:06)
[2019-08-18] MEDS ORDERED: Meropenem 500 MG SDV ONE (06:46)
[2019-08-18] MEDS ORDERED: Lidocaine 1% with EPINEPHrine 1:100,000 50 ML MDV ONE (06:46)
[2019-08-18] MEDS ORDERED: Bupivacaine 0.5% 50 ML MDV ONE (06:46)
[2019-08-18] MEDS ORDERED: Propofol 200 MG/20 ML SDV ONE ×2 (06:52→12:00)
[2019-08-18] MEDS ORDERED: Midazolam 1 MG/ML 2 ML SDV ONE (06:52)
[2019-08-18] MEDS ORDERED: fentaNYL 100 MCG/2 ML SDV ONE (06:52)
[2019-08-18] MEDS ORDERED: oxyCODONE 5 MG Tab PO PRN (08:47)
[2019-08-18] MEDS ORDERED: Cyanocobalamin (Vitamin B12) 1,000 MCG/ML SDV IM ONE (09:00)
--- NOTE | 2019-08-18 09:40 | CR ---
UGI Limited HISTORY: Postbariatric surgery FINDINGS: Patient swallowed water-soluble contrast. Upright views of the abdomen show no evidence of extravasation or obstruction. IMPRESSION: Status post bariatric surgery No extravasation or obstruction seen
[2019-08-18] MEDS: Docusate Sodium 100 MG Cap PO SCH ×2 (09:41→20:04)
[2019-08-18] MEDS: Bisacodyl 5 MG Tab PO SCH ×2 (09:41→20:04)
[2019-08-18] MEDS: Heparin Sodium 5,000 Units/ML Vial SUBCUT SCH ×2 (09:41→20:06)
[2019-08-18] MEDS: Celecoxib 200 MG Cap PO SCH ×2 (09:41→20:04)
--- NOTE | 2019-08-18 09:41 | CR ---
Abdomen 2V AP Flat Upright CLINICAL HISTORY: SBO FINDINGS: There is an NG tube curled in the upper stomach. There are scattered air-fluid levels throughout the small bowel with some distention. There is gas and feces in the colon. Patient has had previous ventral hernia repair IMPRESSION: Persistent small bowel distention with scattered air-fluid levels NG tube in the stomach
[2019-08-18] MEDS: Acetaminophen 500 MG Tab PO PRN ×2 (09:55→20:04)
[2019-08-18] MEDS: Potassium Phos in 0.9 % NaCl 15 MMOL in Premix Bag 1 BAG IV SCH ×6 (09:57→21:53)
[2019-08-18] MEDS: SCOPOLAMINE PATCH CHECK TOP SCH (09:59)
[2019-08-18] MEDS: OMEPRAZOLE 40 MG PO SCH (09:59)
[2019-08-18] MEDS: Albuterol/Ipratropium 3.0-0.5 MG/3 ML Neb Soln INH SCH ×3 (10:48→22:11)
--- NOTE | 2019-08-18 12:00 | PN ---
DATE OF SERVICE: 08/18/2019 SUBJECTIVE: Rafaela has been n.p.o. for delayed primary closure this morning. She has been afebrile, up ambulating. Pain has been controlled. Oral intake 895 until she was n.p.o. and output 4750 and TOO drain put out 165 of serosanguineous drainage. REVIEW OF SYSTEMS: Remainder of review of systems negative for any pertinent positives and negatives. OBJECTIVE: GENERAL: Rafaela Jaquez is a pleasant 44-year-old female. She is alert and orientated, sitting up in the chair. VITAL SIGNS: TPR at 0342 is 96.4, 51, 14. Blood pressure 124/68. HEENT: Negative. NECK: Supple. HEART: Regular rate and rhythm. LUNGS: Clear. ABDOMEN: Dressings dry and intact. Abdominal binder is on. TOO drain as above. EXTREMITIES: Without peripheral edema. ASSESSMENT: Exploratory laparotomy with lysis of adhesions: 1. Small bowel resection. 2. Segment of small bowel strictureplasty. 3. Removal of portion of the peritoneal mesh. 4. Partial gastrectomy. 5. Mobilization of omentum into pelvis. PLAN: Orders to be written after delayed primary closure. She will be getting 60 millimoles K-Phos IV. Lilliana Maciel PA-C /[id number]
--- NOTE | 2019-08-18 14:24 | OR ---
DATE OF PROCEDURE: 08/16/2019 SURGEON: Francisco Ewing MD PREOPERATIVE DIAGNOSIS: Small bowel obstruction. POSTOPERATIVE DIAGNOSES: 1. Small bowel obstruction associated with dense adhesions to intraperitoneal mesh. 2. Marked distention of proximal small bowel. 3. Area of gastric ischemia, status post takedown of adhesions. OPERATIVE PROCEDURES: Exploratory laparotomy with lysis of adhesions: 1. Small bowel resection (95548). 2. Separate small bowel stricturoplasty (45533). 3. Removal of intraperitoneal mesh (33530). 4. Partial gastrectomy (93926). 5. Mobilization of omentum into pelvis to limit adhesions between pelvic and abdominal wall and underlying adhesions (63768). ANESTHESIA: General. INDICATION FOR PROCEDURE: The patient presents with a picture of small-bowel obstruction, was admitted 2 days ago, and after a period of NG decompression, small bowel obstruction appeared to be persistent. Plan at this point is to proceed with an exploratory laparotomy. The patient has a large portion of the intraperitoneal mesh present, and by CT scan, transition point is related to some adhesions between the small bowel and the mesh. Plan is to proceed with exploratory laparotomy and release of small bowel obstruction. She is aware that the mesh may need to be removed if there is dense adherence of the small bowel to the mesh and/or small bowel resection is required. Potential risks otherwise including bleeding, infection, leaks from various GI tract closures, and possibility of the hernia recurring, especially if the mesh is removed, were gone over along with the possibility of cardiopulmonary, septic, or hemorrhagic complications leading to were all discussed, and the patient wishes to proceed. DETAILS OF PROCEDURE: The patient was taken to the operating room, and after general endotracheal anesthesia was induced, the Neri catheter was inserted and the abdomen prepped and draped. A midline incision was then made. This eventually extended from just below the xiphoid to roughly 3 fingerbreadths above the umbilicus and carried down through the full thickness of the abdominal wall. The peritoneal cavity was entered above the present level of the mesh, and at that point, some omental adhesions in the superior aspect of the mesh were taken down with electrocautery. As one passed down more into the inferior aspect of the periumbilical mesh, there was a linear aspect of bowel which was essentially fused with the mesh. This was a polyester mesh which was especially prone to infectious complications, and given this, a decision at that point was made to remove the mesh along with the attached small bowel. During the course of the dissection, there was also a linear aspect of the small bowel that was adherent to the sleeve gastrectomy staple line. This was taken down, and at that point, the small bowel appeared to be adequate in terms of its integrity, but a linear aspect of the sleeve gastrectomy staple line appeared to be desorasalized and somewhat ischemic. At that point, that area of the sleeve gastrectomy staple line was excised using linear sarina. These were accomplished with black loads with reinforcement, and following completion of that limited gastric resection, that staple line was then reinforced with a running 2-0 Prolene seromuscular stitch. dissected away from the abdominal wall, and once that was freed up, the bowel that was entering and then leaving the area of adhesions to the mesh was divided with the BROOK[place]N stapler. After initial division, a small additional segment of this was divided as well and the underlying mesentery divided with mesenteric BROOK[place]N sarina. The mesh and attached small bowel were then delivered from the field. Prior to proceeding with mesh dissection, a small area of additional loop of small bowel was adherent to the mesh, and this was dissected free. It appeared to have a fair bit of stricturing at that level, and a stricturoplasty was initially accomplished at that level with opening of the antimesenteric border at the level of stricture and then internal firing of the BROOK[place]N 60 mm stapler. Common opening was then closed with a purple stapler and the angles of anastomosis reinforced with 3-0 Vicryl stitch. The remaining area of bowel resection was then anastomosed with an internal firing of Endo-BROOKLYN 60 mm stapler followed by a 30 mm internal firing of the BROOK[place]N stapler. The common opening was then closed transversely with a BROOK[place]N stapler small and the angles of anastomosis and mesenteric defect approximated with some 3-0 Vicryl stitch. At that point, fibrin sealant was used to reinforce the gastric staple line as well as the small bowel anastomosis. The abdomen was irrigated with antibiotic-containing saline solution. No additional problems were noted. The patient was felt to be quite high risk for developing an area of subsequent hernia, and given this, the omentum was tacked down to the pelvic wall in the midline with a 3-0 Vicryl stitch to displace the pelvic and abdominal wall from the underlying viscera in the event that additional surgical intervention in this area would be required. The midline fascia was then approximated with a #2 Vicryl stitch. Skin and subcutaneous tissue were felt to be high risk for wound infection if they were closed primarily, and therefore, packed open for a planned delayed primary closure in 48 hours. Prior to closure, bilateral transversus abdominis plane blocks were placed, and the patient was taken to the recovery room in satisfactory condition. There were no evident complications. Francisco Ewing MD /[id number]
[2019-08-18] MEDS: MVI, Adult with Vitamin K 10 ML, Thiamine 200 MG, Chromium/Copper/Mang/Selen/Zn 1 ML in... IV SCH ×4 (18:11)
[2019-08-18] MEDS ORDERED: Metoclopramide 10 MG Tab PO PRN (21:55)
[2019-08-18] MEDS ORDERED: Ondansetron 4 MG Tab.DIS PO PRN (21:55)
[2019-08-18] MEDS ORDERED: diphenhydrAMINE 25 MG Cap PO PRN (21:55)
[2019-08-18] MEDS ORDERED: OMEPRAZOLE 40 MG PO SCH (22:00)
[2019-08-19 04:12] VITALS: BP 123/55
[2019-08-19] MEDS: Acetaminophen 500 MG Tab PO SCH (06:23)
[2019-08-19] MEDS: Albuterol/Ipratropium 3.0-0.5 MG/3 ML Neb Soln INH SCH (07:12)
[2019-08-19 07:33] VITALS: PULSE 63
[2019-08-19] MEDS: Celecoxib 200 MG Cap PO SCH (08:28)
[2019-08-19] MEDS: Docusate Sodium 100 MG Cap PO SCH (08:29)
[2019-08-19] MEDS: Bisacodyl 5 MG Tab PO SCH (08:29)
[2019-08-19] MEDS: Heparin Sodium 5,000 Units/ML Vial SUBCUT SCH (08:30)
[2019-08-19] MEDS ORDERED: Potassium Chloride 10% 20 MEQ/15 ML Soln 15 ML UD Cup PO ONE (09:00)
--- NOTE | 2019-08-19 10:39 | DISCH ---
ADMISSION DIAGNOSES: Abdominal pain, status post sleeve gastrectomy, unspecified surgical malabsorption, B12 deficiency, iron deficiency anemia. DISCHARGE DIAGNOSES: 1. Exploratory laparotomy with lysis of adhesions. 2. Small bowel resection. 3. Separate small bowel strictureplasty. 4. Removal of intraperitoneal mesh. 5. Partial gastrectomy. 6. Mobilization of omentum into pelvis to limit adhesions between pelvic and abdominal wall and underlying adhesions. POSTOPERATIVE DIAGNOSES: 1. Small bowel obstruction associated with dense adhesions to intraperitoneal mesh. 2. Marked distention of proximal small bowel. 3. Area of gastric ischemia, status post takedown of adhesions. 4. Date of procedure: 08/16/2019. Surgeon: Francisco Ewing MD. HISTORY: Rafaela presented to the emergency room on 08/15/2019. She had an NG in for small bowel obstruction with no improvement on 08/16/2019. She signed a consent to have surgery after preoperative evaluation and discussion of possible risks and possible complications were discussed. HOSPITAL COURSE: Rafaela had her surgery on 08/16/2019. She had no operative complications. On 08/18/2019, she had a delayed primary closure. She was started on a step 2 gastric bypass diet, oral pain medication which consisted of Tylenol scheduled and she had oxycodone available, which she used very infrequently. Rafaela was able to be discharged on 08/19/2019. Her oral intake was adequate at 1450 of step 2, urine output 2800, and she had 1 bowel movement. Pain was controlled with Tylenol as stated. She received dietary instruction, and she was able to be discharged on 08/19/2019 with no complications. PHYSICAL EXAMINATION: GENERAL: Rafaela Jaquez is a pleasant 44-year-old female. VITAL SIGNS: Height is 5 feet 5 inches, weight is 266 pounds, BMI is 44. TPR 96.4, 57, 16, blood pressure 123/55. HEENT: Negative. NECK: Supple. HEART: Regular rate and rhythm. LUNGS: Clear. ABDOMEN: Aquacel dressing is on. Abdominal binder is on. EXTREMITIES: Without peripheral edema. DISPOSITION: Discharged to home. CONDITION: Stable and improving. FOLLOWUP: Appointment with Lilliana Maciel PA-C at [facility] on 08/26/2019 at 1:15 p.m. HOME MEDICATIONS: 1. Celebrex 200 mg oral b.i.d. #28. 2. Oxycodone 5 mg q.6 hours. Written prescription was given for 10. She states she will fill only if needed. 3. Potassium chloride 25 mEq daily for 30 days. 4. Tylenol Extra Strength 1000 mg every 8 hours for pain. 5. To resume vitamins after first postoperative appointment. DIET: Step 2 gastric bypass diet with no cereal for 2 weeks until 08/30/2019 due to surgery on sleeve. Drink 8 to 10 glasses of water a day and have 65 g of protein. ACTIVITY AFTER DISCHARGE: No lifting over 10 pounds for 6 weeks. Driving: Do not drive for 1 week and while on pain medication. Shower/bathing: May shower. DISCHARGE INSTRUCTIONS: Notify provider if any fever, increased pain, swelling, redness, drainage, nausea, or vomiting. Keep site clean and dry. Wound incision care. Take off Aquacel dressing on 08/22/2019. SPECIAL INSTRUCTION: Use incentive spirometer 10 times every hour while awake.
== END 2019-08-19 09:30 | disposition home or self-care (01) | DRG 327 ==
LOC: JP.ED 07:09 → JP.MS 10:45
PROVIDERS: ADMIT Surgery; ATTEND Physician Assistant Medical
PROC: 0DB80ZZ Excision of Small Intestine, Open Approach (ICD-10-PCS; principal; 2019-08-16)
PROC: 0DB60ZZ Excision of Stomach, Open Approach (ICD-10-PCS; 2019-08-16)
PROC: 0DPW0JZ Removal of Synthetic Substitute from Peritoneum, Open Approach (ICD-10-PCS; 2019-08-16)
DX: K56.50 Intestinal adhesions [bands], unspecified as to partial versus complete obstruction (principal); Z68.41 Body mass index [BMI] 40.0-44.9, adult; K63.89 Other specified diseases of intestine; K21.9 Gastro-esophageal reflux disease without esophagitis; G47.30 Sleep apnea, unspecified; K44.9 Diaphragmatic hernia without obstruction or gangrene; Z88.8 Allergy status to other drugs, medicaments and biological substances; Z79.899 Other long term (current) drug therapy; E66.9 Obesity, unspecified
CPT/HCPCS: 36415; 74019; 74019-26; 74177; 74177-26; 74240; 74240-26; 80048; 80053; 81001; 82607; 82728; 82746; 83735; 84100; 85025; 85027; 86140; 88307; 93005; 94640; 94762; 96361; 96374; 96375; 96376; 99285-25; A9270-GY; C9113; J0171; J0330; J0694; J0780; J1100; J1644; J2185; J2250; J2270; J2405; J2704; J2710; J2765; J2795; J2916; J3010; J3410; J3411; J3420; J3475; J3490; J7030; J7050; J7120; J7121; J7620-GY; Q9967

== ENCOUNTER 2020-03-22 07:15 | Inpatient (IN) | payer MEDICAID ==
[~2020-03-22 07:15] MED LIST: Bupivacaine 0.5% 50 ML MDV ONE; Lidocaine 1% with EPINEPHrine 1:100,000 50 ML MDV ONE; Meropenem 500 MG SDV ONE
[2020-03-22] MEDS ORDERED: fentaNYL 250 MCG/5 ML SDV ONE (07:46)
[2020-03-22] MEDS ORDERED: Ondansetron 4 MG/2 ML SDV ONE (07:47)
[2020-03-22] MEDS ORDERED: Glycopyrrolate 0.2 MG/ML 5 ML MDV ONE (07:47)
[2020-03-22] MEDS ORDERED: Dexamethasone 4 MG/ML SDV ONE (07:47)
[2020-03-22] MEDS ORDERED: Rocuronium 50 MG/5 ML Vial ONE (07:47)
[2020-03-22] MEDS ORDERED: Succinylcholine 200 MG/10 ML MDV ONE (07:47)
[2020-03-22] MEDS ORDERED: Propofol 200 MG/20 ML SDV ONE (07:47)
[2020-03-22] MEDS ORDERED: Neostigmine Methylsulfate 1 MG/ML 5 ML Syringe ONE (07:47)
[2020-03-22] MEDS ORDERED: Magnesium Sulfate 3.3 GM in Sodium Chloride 0.9% 100 ML IV SCH (08:30)
[2020-03-22] MEDS ORDERED: SODIUM CHLORIDE 0.9% IV ONE (08:30)
[2020-03-22] MEDS ORDERED: Ketamine 500 MG/5 ML MDV IV SCH (08:30)
[2020-03-22] MEDS ORDERED: MAGNESIUM SULFATE IV ONE (08:30)
[2020-03-22] MEDS ORDERED: Ketamine 50 MG in Sodium Chloride 0.9% 49.5 ML IV SCH (08:30)
[2020-03-22] MEDS ORDERED: Acetaminophen 500 MG Tab PO ONE (08:30)
[2020-03-22] MEDS ORDERED: Dextrose 5%-Lactated Ringers 1,000 ML IV SCH (08:45)
[2020-03-22] MEDS ORDERED: ceFAZolin 2 GM in Premix Bag 1 BAG IV ONE (09:45)
[2020-03-22] MEDS ORDERED: Ondansetron 4 MG/2 ML SDV IVPUSH PRN ×2 (10:06→14:00)
[2020-03-22] MEDS ORDERED: diphenhydrAMINE 50 MG/ML SDV IVPUSH PRN (10:06)
[2020-03-22] MEDS ORDERED: diphenhydrAMINE 25 MG Cap PO PRN (10:06)
[2020-03-22] MEDS ORDERED: Naloxone 0.4 MG/ML SDV IVPUSH PRN (10:06)
[2020-03-22] MEDS ORDERED: fentaNYL/Normal Saline 600 MCG/30 ML PCA Vial IV PRN (10:15)
[2020-03-22] MEDS ORDERED: Naloxone 0.4 MG/ML SDV IV PRN (11:00)
[2020-03-22] MEDS ORDERED: Lactated Ringers 1,000 ML ONE (11:32)
[2020-03-22] MEDS ORDERED: Mupirocin Oint 22 GM Tube ONE (11:51)
[2020-03-22] MEDS ORDERED: fentaNYL 100 MCG/2 ML SDV ONE (12:16)
[2020-03-22] MEDS ORDERED: Cyclobenzaprine 10 MG Tab PO PRN (13:38)
[2020-03-22] MEDS ORDERED: hydrOXYzine HCL 100 MG/2 ML SDV IM PRN (14:00)
[2020-03-22] MEDS: Dextrose 5%-Lactated Ringers 1,000 ML IV SCH (15:32)
[2020-03-22] MEDS: ceFAZolin 2 GM in Premix Bag 1 BAG IV SCH (16:16)
[2020-03-23] MEDS: ceFAZolin 2 GM in Premix Bag 1 BAG IV SCH ×2 (00:33→08:05)
[2020-03-23] MEDS: Dextrose 5%-Lactated Ringers 1,000 ML IV SCH ×3 (04:12→21:52)
[2020-03-23] MEDS ORDERED: Pantoprazole 40 MG Tab.CR PO SCH (07:30)
--- NOTE | 2020-03-23 08:05 | PN ---
DATE OF SERVICE: 03/23/2020 SUBJECTIVE: Rafaela is postoperative day 1. Vital signs have been stable. She has been up, ambulating. Pain has better controlled with the DREDGE PIPEMAN. She would like to go to oral pain medication. Oral intake 1180. Urine output 1100 via Neri catheter. TOO drain 1 to 4 put out 40, 40, 70, and 70 respectively of a clear pink drainage. REVIEW OF SYSTEMS: Remainder of review of systems negative for any pertinent positives and negatives. OBJECTIVE: GENERAL: Rafaela Jaquez is a pleasant 44-year-old female. She is alert, orientated. VITAL SIGNS: Stable. HEENT: Negative. NECK: Negative. HEART: Regular rate and rhythm. LUNGS: Clear. ABDOMEN: Dressings dry and intact. Abdominal binder is on. EXTREMITIES: Without peripheral edema. ASSESSMENT: 1. Panniculectomy. 2. Repair of incarcerated umbilical hernia. 3. Repair of recurrent incisional hernia. 4. Left inguinal hernia identified. POSTOPERATIVE DIAGNOSES: 1. Chronic panniculitis. 2. Umbilical hernia. 3. Left inguinal pain. Date of procedure: 03/22/2020. Surgeon: Francisco Ewing MD. PLAN: 1. Decrease IV to 100 mL per hour. 2. Discontinue Neri. 3. Discontinue DREDGE PIPEMAN. 4. Oxycodone 5 mg q.4 hours p.r.n. pain and teach patient to strip, empty, measure, and record TOO drains 4 times a day. 5. We will evaluate p.r.n. or in a.m. Lilliana Maciel PA-C /[id number]
[2020-03-23] MEDS: oxyCODONE 5 MG Tab PO PRN ×4 (08:10→22:08)
[2020-03-23] MEDS ORDERED: OMEPRAZOLE 40 MG PO SCH (10:00)
[2020-03-24] MEDS: oxyCODONE 5 MG Tab PO PRN ×2 (03:32→07:44)
[2020-03-24 07:48] VITALS: BP 104/55; PULSE 60
--- NOTE | 2020-03-24 10:01 | DISCH ---
ADMISSION DIAGNOSES: 1. Chronic panniculitis. 2. Umbilical hernia. 3. Left inguinal pain. DISCHARGE DIAGNOSES: 1. Panniculectomy. 2. Repair of incarcerated umbilical hernia. 3. Repair of recurrent incisional hernia. 4. Left inguinal hernia identified. POSTOPERATIVE DIAGNOSES: Chronic panniculectomy, umbilical hernia, left inguinal pain. Date of procedure: 03/22/2020. Surgeon: Francisco Ewing MD. HISTORY: Rafaela is a pleasant 44-year-old female with above diagnosis. After preoperative evaluation and discussion of possible risks and possible complications, she wished to proceed with surgical procedure. HOSPITAL COURSE: Rafaela had her surgery on 03/22/2020. She had no operative complications. On postoperative day #1, she was started on oral pain medication. Her diet was advanced. IV decreased. Neri was discontinued. On postoperative day #2, her activity was good. She was taught how to take care of her TOO drains. Vital signs stable and pain was well managed, and she was able to be discharged to home. PHYSICAL EXAMINATION: GENERAL: Rafaela Jaquez is a 44-year-old female. VITAL SIGNS: Height is 5 feet 4 inches, weight is 246 pounds, BMI is 42.2. TPR is 96.8, 60, 18, blood pressure 104/55. HEENT: Negative. NECK: Supple. HEART: Regular rate and rhythm. LUNGS: Clear. ABDOMEN: She has 4 TOO drains that are draining a pink serous drainage, 15, 15, 40, and 60 mL respectively, sarina intact. Incision looks good and abdominal binder has been on. EXTREMITIES: Without peripheral edema. DISPOSITION: Discharged to home. CONDITION: Stable and improving. FOLLOWUP APPOINTMENT: Lilliana Maciel PA-C, on 03/31/2020 at 10 a.m. HOME MEDICATIONS: Oxycodone 5 mg oral q.6 hours p.r.n. pain, #28. She is to resume her home medication. DIET: Usual diet as tolerated. Drink 8 to 10 glasses of water a day. ACTIVITY: No lifting greater than 10 pounds for 6 weeks. Walk 6 times daily inside your home. Driving: Do not drive for 1 week. DISCHARGE INSTRUCTIONS: Keep operative site clean and dry. Wear abdominal binder for 6 weeks and then as tolerated. Strip, empty, measure and record TOO drains 4 times a day. Bring record of TOO drainage to clinic appointments. Use incentive spirometer 10 times every hour while awake for 1 week. Notify provider if any fever, increased pain, swelling, redness, drainage, nausea, or vomiting. /[id number]
--- NOTE | 2020-03-29 09:40 | OR ---
DATE OF PROCEDURE: 03/22/2020 SURGEON: Francisco Ewing MD PREOPERATIVE DIAGNOSES: 1. Chronic panniculitis. 2. Recurrent incisional hernia. POSTOPERATIVE DIAGNOSES: 1. Chronic panniculitis. 2. Recurrent incisional hernia. 3. Incarcerated umbilical hernia. OPERATIVE PROCEDURES: 1. Panniculectomy (84396). 2. Repair of recurrent incisional hernia (50586). 3. Repair of incarcerated umbilical hernia (23253). ANESTHESIA: General. LAMINATING PRESS OPERATOR: Lilliana Maciel PA-C INDICATIONS FOR PROCEDURE: The patient presents with a chronic panniculitis status post previous weight loss surgery. She was also noted to have a recurrent incisional hernia located below mesh placed in the supraumbilical area previously. Plan was to proceed with repair of the hernia along with panniculectomy. Potential risks of procedure including bleeding, infection, injury to underlying viscera, possible recurrence of the hernia as well as possibility of cardiopulmonary, septic, or hemorrhagic complications leading to were discussed, and the patient wishes to proceed. DETAILS OF PROCEDURE: The patient was taken to the operating room and placed in a supine position. After general endotracheal anesthesia was induced, a Neri catheter was inserted, and the abdomen prepped and draped. Initially, a laparotomy-based wide transversely oriented elliptical incision was made across the lower abdomen and carried down through the skin and subcutaneous tissue. It was then carried down inferiorly and superiorly down to the level of fascia and then working toward the midline reflected off the fascia using the perforating vessels coming out of the inferior epigastric vessels were suture ligated to minimize problems with postoperative bleeding issues. As one approached the midline, the patient was noted to have an incarcerated umbilical hernia which contained some preperitoneal fat within it. This was excised flush with the fascia and below that the patient was noted to have a ridge of recurrent hernia in the fascia below the umbilicus. The pannus was reflected off these 2 hernia sites and delivered from the field. The umbilical hernia was then repaired with a [id number] stitch of #2 Vicryl stitch and the recurrent incisional hernia was then repaired with imbrication of the fascia in the vertical midline from just below the umbilicus down to somewhat above the pubis. The patient complained of some sense of weakness in the left inguinal area. The external oblique aponeurosis over that area was opened and the area explored, no hernia could be identified. At this point, the abdomen was irrigated with antibiotic-containing saline solution. Two Jose Elias-Moore drains were then placed through stab wounds just superior to the main incision and the incision was closed with some 3-0 and 4-0 Vicryl stitch deep and sarina for the skin. Drains were affixed with some 4-0 Vicryl stitch. The patient was taken to the recovery room in satisfactory condition. Physician pathologist assistant, Lilliana Maciel played an essential role in assisting in this case, helping to position the patient, retract structures as needed as well as suturing and cutting sutures when indicated. Her presence improved patient safety and decreased the operative time. Francisco Ewing MD /[id number]
== END 2020-03-24 09:30 | disposition home or self-care (01) | DRG 571 ==
LOC: EDSTATUS 07:15 → JP.SDS 08:03 → JP.MS 13:34
PROVIDERS: ADMIT Surgery; ATTEND Surgery
PROC: 0JB80ZZ Excision of Abdomen Subcutaneous Tissue and Fascia, Open Approach (ICD-10-PCS; principal; 2020-03-22)
PROC: 0WQF0ZZ Repair Abdominal Wall, Open Approach (ICD-10-PCS; 2020-03-22)
PROC: 0WQF0ZZ Repair Abdominal Wall, Open Approach (ICD-10-PCS; 2020-03-22)
DX: M79.3 Panniculitis, unspecified (principal); K42.0 Umbilical hernia with obstruction, without gangrene; K43.0 Incisional hernia with obstruction, without gangrene; K40.90 Unilateral inguinal hernia, without obstruction or gangrene, not specified as recurrent; F17.210 Nicotine dependence, cigarettes, uncomplicated; Z88.5 Allergy status to narcotic agent; Z79.899 Other long term (current) drug therapy
CPT/HCPCS: 36415; 80048; 85027; 88302; 94762; A9270-GY; J0171; J0330; J0690; J1100; J2020; J2185; J2405; J2704; J2710; J2795; J3010; J3475; J3490; J7120; J7121

== ENCOUNTER 2020-04-30 15:32 | Emergency (ER) | payer MEDICAID ==
[2020-04-30 15:45] VITALS: BP 111/71; PULSE 74
--- NOTE | 2020-04-30 16:07 | EDM.PDOC ---
ED HPI GENERAL MEDICAL PROBLEM - General Chief Complaint: Wound Recheck Stated Complaint: DRAIN LEAKING Time Seen by Provider: 04/30/20 16:02 Source of Information: Reports: Patient, RN Notes Reviewed History Limitations: Reports: No Limitations - History of Present Illness INITIAL COMMENTS - FREE TEXT/NARRATIVE: 44-year-old female presents emergency department today with concerns about TOO drain functioning, she states she has not had any drainage into her TOO drain but it has been leaking around it for about 24 hours - Related Data Allergies Allergy/AdvReac Type Severity Reaction Status Date / Time hydromorphone HCl AdvReac Intermediate Nausea Verified 04/30/20 15:50 [From Dilaudid] Home Meds: Home Meds Cyanocobalamin (Vitamin B-12) [Vitamin B-12] 1,000 mcg SL DAILY 01/31/17 [History] Pediatric Multivitamin Comb#30 [Gummies Children Multivitamin] 1 tab PO BID 01/31/17 [History] Cholecalciferol (Vitamin D3) [Vitamin D] 50,000 unit PO .MWF 12/18/18 [History] Omeprazole Magnesium [Prilosec Otc] 40 mg PO DAILY 12/18/18 [History] Calcium Citrate/Vitamin D3 [Calcium Citrate - Vit D Caplet] 1 each PO DAILY 03/18/20 [History] Past Medical History HEENT History: Reports: Impaired Vision Respiratory History: Reports: Sleep Apnea Gastrointestinal History: Reports: GERD, Hiatal Hernia Genitourinary History: Reports: None MATERIALS DIRECTOR History: Reports: Other MATERIALS DIRECTOR 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 tied Musculoskeletal History: Reports: None Endocrine/Metabolic History: Reports: Obesity/BMI 30+ Hematologic History: Reports: Iron Deficiency - Infectious Disease History Infectious Disease History: Reports: Chicken Pox - Past Surgical History HEENT Surgical History: Reports: None Respiratory Surgical History: Reports: None GI Surgical History: Reports: Bariatric Procedure, Hernia Repair/Other, Other (See Below) Other GI Surgeries/Procedures: umbilical fatty mass removed, hx sleeve Female Surgical History: Reports: Tubal Ligation Endocrine Surgical History: Reports: None Musculoskeletal Surgical History: Reports: Carpal Tunnel Social & Family History - Family History Family Medical History: No Pertinent Family History : Reports: Renal Calculus Oncologic: Reports: Lung - Tobacco Use Tobacco Use Status *Q: Current Every Day Tobacco User Years of Tobacco use: 25 Packs/Tins Daily: 1 - Caffeine Use Caffeine Use: Reports: Coffee ED ROS GENERAL - Review of Systems Review Of Systems: See Below Constitutional: Reports: No Symptoms GI/Abdominal: Reports: No Symptoms ED EXAM, GENERAL - Physical Exam Exam: See Below Free Text/Narrative:: TOO drain was flushed by nursing staff it now appears to be functioning as intended Exam Limited By: No Limitations General Appearance: Alert, WD/WN, No Apparent Distress GI/Abdominal: Soft, Non-Tender Course - Vital Signs Last Recorded V/S: Last Vital Signs Temp 97.2 F 04/30/20 15:57 Pulse 74 04/30/20 15:57 Resp 16 04/30/20 15:57 BP 111/71 04/30/20 15:57 Pulse Ox 99 04/30/20 15:57 Departure - Departure Time of Disposition: 16:06 Disposition: Home, Self-Care 01 Condition: Fair Clinical Impression: TOO drain, broken Qualifiers: Encounter type: initial encounter Qualified Code(s): T85.698A - Other mechanical complication of other specified internal prosthetic devices, implants and grafts, initial encounter - Discharge Information Referrals: Francisco Ewnig MD [Primary Care Provider] - Additional Instructions: Keep your follow-up appointment with general surgery call return to the emergency department with worsening of symptoms continue regular TOO drain care Sepsis Event Note (ED) - Evaluation Sepsis Screening Result: No Definite Risk - Focused Exam Vital Signs: Vital Signs Temp Pulse Resp BP Pulse Ox 04/30/20 15:57 97.2 F 74 16 111/71 99 04/30/20 15:43 97.2 F 74 16 111/71 99 - Assessment/Plan Plan: Assessment Acuity = acute Site and laterality = TOO drain dysfunction Etiology = blockage Manifestations = none Location of injury = Home Lab values = none Plan Has a follow-up with surgery on Sunday of this next week This note was dictated using [employer] voice recognition software please call with any questions on syntax or grammar.
== END 2020-04-30 16:29 | disposition home or self-care (01) ==
LOC: JP.ED 15:32
DX: T85.698A Other mechanical complication of other specified internal prosthetic devices, implants and grafts, initial encounter (principal); K21.9 Gastro-esophageal reflux disease without esophagitis; E66.9 Obesity, unspecified; Z72.0 Tobacco use; Z68.39 Body mass index [BMI] 39.0-39.9, adult; Z88.5 Allergy status to narcotic agent; Z79.899 Other long term (current) drug therapy
CPT/HCPCS: 99281; 99282

== ENCOUNTER 2020-05-12 20:38 | Emergency (ER) | payer MEDICAID ==
[2020-05-12 20:51] VITALS: BP 131/85; PULSE 73
--- NOTE | 2020-05-12 21:01 | EDM.PDOC ---
ED HPI GENERAL MEDICAL PROBLEM - General Stated Complaint: HAD SURG DONE Mar HAVING ISSUES Time Seen by Provider: 05/12/20 21:10 Source of Information: Reports: Patient, Old Records History Limitations: Reports: No Limitations - History of Present Illness INITIAL COMMENTS - FREE TEXT/NARRATIVE: Milagro is a 44-year-old female presenting to the ED for evaluation of skin redness and drainage from a previous site of a TOO drain. Patient recently had a panniculectomy and incisional hernia repair done by Dr. Ewing and ended up with a seroma. A TOO drain was placed and was recently removed about a week ago. Today the patient noted increasing redness of the skin, induration, and drainage from the previous site of the TOO drain. There is been a small amount of drainage on her shirt. She denies any fever or chills. The incision has become more red, tender, and swollen. Prompted her to come in for evaluation tonight. She has not tried to get a hold of Dr. Ewing concerning this. - Related Data Allergies Allergy/AdvReac Type Severity Reaction Status Date / Time hydromorphone HCl AdvReac Intermediate Nausea Verified 05/12/20 20:57 [From Dilaudid] Home Meds: Home Meds Cyanocobalamin (Vitamin B-12) [Vitamin B-12] 1,000 mcg SL DAILY 01/31/17 [History] Pediatric Multivitamin Comb#30 [Gummies Children Multivitamin] 1 tab PO BID 01/31/17 [History] Cholecalciferol (Vitamin D3) [Vitamin D] 50,000 unit PO .MWF 12/18/18 [History] Omeprazole Magnesium [Prilosec Otc] 40 mg PO DAILY 12/18/18 [History] Calcium Citrate/Vitamin D3 [Calcium Citrate - Vit D Caplet] 1 each PO DAILY 03/18/20 [History] Past Medical History HEENT History: Reports: Impaired Vision Respiratory History: Reports: Sleep Apnea Gastrointestinal History: Reports: GERD, Hiatal Hernia Genitourinary History: Reports: None 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 TEAROOM HOST 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 tied Musculoskeletal History: Reports: None Endocrine/Metabolic History: Reports: Obesity/BMI 30+ Hematologic History: Reports: Iron Deficiency - Infectious Disease History Infectious Disease History: Reports: Chicken Pox - Past Surgical History HEENT Surgical History: Reports: None Respiratory Surgical History: Reports: None GI Surgical History: Reports: Bariatric Procedure, Hernia Repair/Other, Other (See Below) Other GI Surgeries/Procedures: umbilical fatty mass removed, hx sleeve Female Surgical History: Reports: Tubal Ligation Endocrine Surgical History: Reports: None Musculoskeletal Surgical History: Reports: Carpal Tunnel Social & Family History - Family History Family Medical History: No Pertinent Family History : Reports: Renal Calculus Oncologic: Reports: Lung - Caffeine Use Caffeine Use: Reports: Coffee ED ROS GENERAL - Review of Systems Review Of Systems: See Below Constitutional: Reports: No Symptoms HEENT: Reports: No Symptoms Respiratory: Reports: No Symptoms Cardiovascular: Reports: No Symptoms Endocrine: Reports: No Symptoms GI/Abdominal: Reports: No Symptoms Musculoskeletal: Reports: No Symptoms Skin: Reports: Wound (Surgical wound is now hot, red, tender, indurated, and a small amount of serosanguineous drainage from the previous TOO site.) Neurological: Reports: No Symptoms Psychiatric: Reports: No Symptoms Hematologic/Lymphatic: Reports: No Symptoms Immunologic: Reports: No Symptoms ED EXAM, GENERAL - Physical Exam Exam: See Below Exam Limited By: No Limitations General Appearance: Alert, No Apparent Distress, Obese Neurological: Alert, Oriented, Normal Cognition, No Motor/Sensory Deficits Skin Exam: Erythema, Increased Warmth, Wound/Incision (Surgical wound has become red, hot, indurated, and tender to palpation. She does have a small amount of serosanguineous drainage from the previous site of the Jose Elias-Moore drain. It is a scant amount of serosanguineous drainage is on her shirt.) Front/Back Body Diagram: 1 - Surgical wound from the panniculectomy is hot, red, tender, indurated, with a small amount of serosanguineous discharge from the previous Jose Elias-Moore drain site. Course - Vital Signs Last Recorded V/S: Last Vital Signs Temp 36.4 C 05/12/20 20:48 Pulse 73 05/12/20 20:48 Resp 16 05/12/20 20:48 BP 131/85 05/12/20 20:48 Pulse Ox 95 05/12/20 20:48 Departure - Departure Time of Disposition: 21:35 Disposition: Home, Self-Care 01 Clinical Impression: Cellulitis Qualifiers: Site of cellulitis: trunk Site of cellulitis of trunk: abdominal wall Qualified Code(s): L03.311 - Cellulitis of abdominal wall - Discharge Information *PRESCRIPTION DRUG MONITORING PROGRAM REVIEWED*: Not Applicable *COPY OF PRESCRIPTION DRUG MONITORING REPORT IN PATIENT SUKHI: Not Applicable Referrals: Chata Krishnan CNM [Primary Care Provider] - Care Plan Goals: I discussed the case with Dr. Ewing who would like you to see Lilliana in the office tomorrow at 10 AM. In the meantime, recommend start you on antibiotic called cephalexin which is 500 mg 3 times a day for the next 7 days. Sepsis Event Note (ED) - Focused Exam Vital Signs: Vital Signs Temp Pulse Resp BP Pulse Ox 05/12/20 20:48 36.4 C 73 16 131/85 95 - Problem List & Annotations (1) Cellulitis SNOMED Code(s): 645262787 Code(s): L03.90 - CELLULITIS, UNSPECIFIED Status: Acute Priority: Medium Current Visit: Yes Qualifiers: Site of cellulitis: trunk Site of cellulitis of trunk: abdominal wall Qualified Code(s): L03.311 - Cellulitis of abdominal wall - Problem List Review Problem List Initiated/Reviewed/Updated: Yes
== END 2020-05-12 21:41 | disposition home or self-care (01) ==
LOC: JP.ED 20:38
DX: L03.311 Cellulitis of abdominal wall (principal); K21.9 Gastro-esophageal reflux disease without esophagitis; E66.9 Obesity, unspecified; Z68.41 Body mass index [BMI] 40.0-44.9, adult; Z88.5 Allergy status to narcotic agent; Z79.899 Other long term (current) drug therapy
CPT/HCPCS: 36415; 85025; 86140; 99283

== ENCOUNTER 2020-05-13 11:25 | Observation (INO) | payer MEDICAID ==
[2020-05-13] MEDS ORDERED: Acetaminophen 325 MG Tab PO PRN (12:05)
[2020-05-13] MEDS ORDERED: Acetaminophen 650 MG Supp RECTAL PRN (12:09)
[2020-05-13] MEDS ORDERED: Dextrose 5%-Lactated Ringers 1,000 ML IV SCH (12:15)
[2020-05-13 13:18] LABS: CORONAVIRUS COVID-19 NAA NEGATIVE (NEGATIVE)
[2020-05-13] MEDS: Meropenem 500 MG in Sodium Chloride 0.9% 50 ML IV SCH ×3 (13:43→23:45)
[2020-05-13] MEDS: Linezolid 600 MG in Premix Bag 1 BAG IV SCH (14:28)
--- NOTE | 2020-05-13 16:12 | PCM.HP.2 ---
H&P History of Present Illness - General Date of Service: 05/13/20 Admit Problem/Dx: Admission Diagnosis/Problem Admission Diagnosis/Problem Seroma complicating a procedure Source of Information: Patient History Limitations: Reports: No Limitations - History of Present Illness Initial Comments - Free Text/Narative: Last evening went to the ED because of swelling, pain, redness and drainage from the right side of her incision. Rafaela was not able to make her appointment yesterday in the clinic. She was started on an antibiotic and has taken one so far. Location: Reports: Abdomen Quality: Reports: Pressure, Throbbing Improves with: Reports: None Worsens with: Reports: None - Related Data Allergies/Adverse Reactions: Allergies Allergy/AdvReac Type Severity Reaction Status Date / Time hydromorphone HCl AdvReac Intermediate Nausea Verified 05/13/20 11:44 [From Dilaudid] Home Medications: Home Meds Cyanocobalamin (Vitamin B-12) [Vitamin B-12] 1,000 mcg SL DAILY 01/31/17 [History] Pediatric Multivitamin Comb#30 [Gummies Children Multivitamin] 1 tab PO BID 01/31/17 [History] Cholecalciferol (Vitamin D3) [Vitamin D] 50,000 unit PO .MWF 12/18/18 [History] Omeprazole Magnesium [Prilosec Otc] 40 mg PO DAILY 12/18/18 [History] Calcium Citrate/Vitamin D3 [Calcium Citrate - Vit D Caplet] 1 each PO DAILY 03/18/20 [History] Past Medical History HEENT History: Reports: Impaired Vision Respiratory History: Reports: Sleep Apnea Gastrointestinal History: Reports: GERD, Hiatal Hernia Genitourinary History: Reports: None 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 OB/BYN 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 tied Musculoskeletal History: Reports: None Endocrine/Metabolic History: Reports: Obesity/BMI 30+ Hematologic History: Reports: Iron Deficiency - Infectious Disease History Infectious Disease History: Reports: Chicken Pox - Past Surgical History Head Surgeries/Procedures: Reports: None HEENT Surgical History: Reports: None Respiratory Surgical History: Reports: None GI Surgical History: Reports: Bariatric Procedure, Hernia Repair/Other, Other (See Below) Other GI Surgeries/Procedures: umbilical fatty mass removed, hx gastric sleeve, panniculectomy Female Surgical History: Reports: Tubal Ligation Endocrine Surgical History: Reports: None Musculoskeletal Surgical History: Reports: Carpal Tunnel Dermatological Surgical History: Reports: None Social & Family History - Family History Family Medical History: No Pertinent Family History : Reports: Renal Calculus Oncologic: Reports: Lung - Tobacco Use Tobacco Use Status *Q: Current Every Day Tobacco User Years of Tobacco use: 20 Packs/Tins Daily: 0.5 Used Tobacco, but Quit: No - Caffeine Use Caffeine Use: Reports: Coffee - Recreational Drug Use Recreational Drug Use: No H&P Review of Systems - Review of Systems: Review Of Systems: Comprehensive ROS is negative, except as noted in HPI. Exam - Exam Exam: See Below - Vital Signs Vital Signs: Last Vital Signs Temp 98.4 F 05/13/20 12:24 Pulse 64 05/13/20 12:24 Resp 16 05/13/20 12:24 BP 102/64 05/13/20 12:24 Pulse Ox 99 05/13/20 12:24 Weight: 240 lb 1.334 oz - Exam Quality Assessment: DVT Prophylaxis General: Alert, Oriented HEENT: PERRLA, Conjunctiva Clear Neck: Supple, Trachea Midline Lungs: Clear to Auscultation, Normal Respiratory Effort Cardiovascular: Regular Rate, Regular Rhythm GI/Abdominal Exam: Other (Pain and swelling on the right side of the panniculectomy incision. Area is 4 inches wide, warm, pink, firm and tender.) (Female) Exam: Deferred Rectal (Female) Exam: Deferred Back Exam: Normal Inspection, Full Range of Motion Extremities: Normal Inspection Skin: Warm, Dry, Intact Neurological: Cranial Nerves Intact, Reflexes Equal Bilateral Neuro Extensive - Mental Status: Alert, Oriented x3, Normal Mood/Affect Neuro Extensive - Motor, Sensory, Reflexes: Normal Gait Psychiatric: Alert, Normal Affect, Normal Mood - Patient Data Lab Results Last 24 hrs: Laboratory Results - last 24 hr 05/13/20 05/13/20 05/13/20 Range/Units 11:45 12:01 12:01 WBC 5.7 (4.5-11.0) K/uL RBC 4.47 (3.30-5.50) M/uL Hgb 13.1 (12.0-15.0) g/dL Hct 39.7 (36.0-48.0) % MCV 89 (80-98) fL MCH 29 (27-31) pg MCHC 33 (32-36) % Plt Count 213 (150-400) K/uL Sodium 139 L (140-148) mmol/L Potassium 4.3 (3.6-5.2) mmol/L Chloride 102 (100-108) mmol/L Carbon Dioxide 27 (21-32) mmol/L Anion Gap 14.3 H (5.0-14.0) mmol/L BUN 9 (7-18) mg/dL Creatinine 0.8 (0.6-1.0) mg/dL Est Cr Clr Drug Dosing 76.68 mL/min Estimated GFR (MDRD) > 60 (>60) Glucose 80 (74-106) mg/dL Calcium 9.9 (8.5-10.1) mg/dL Phosphorus 4.0 (2.5-4.9) mg/dL Magnesium 2.0 (1.8-2.4) mg/dL Total Bilirubin 0.3 (0.2-1.0) mg/dL AST 12 L (15-37) U/L ALT 17 (12-78) U/L Alkaline Phosphatase 56 (46-116) U/L Total Protein 6.8 (6.4-8.2) g/dL Albumin 3.4 (3.4-5.0) g/dL Globulin 3.4 (2.3-3.5) g/dL Albumin/Globulin Ratio 1.0 L (1.2-2.2) Influenza Type A RNA Negative (NEGATIVE) RSV RNA (INAAT) Negative (NEGATIVE) Influenza Type B RNA Negative (NEGATIVE) SARS-CoV-2 RNA (OLIVIA) Negative (NEGATIVE) Result Diagrams: 05/13/20 12:01 05/13/20 12:01 Sepsis Event Note - Evaluation Sepsis Screening Result: No Definite Risk - Focused Exam Vital Signs: Vital Signs Temp Pulse Resp BP Pulse Ox 05/13/20 12:24 98.4 F 64 16 102/64 99 - Problem List (1) Abdominal wall seroma SNOMED Code(s): 630743255, [id number] ICD Code: S30.1XXA - CONTUSION OF ABDOMINAL WALL, INITIAL ENCOUNTER Status: Acute Current Visit: Yes Problem List Initiated/Reviewed/Updated: Yes Orders Last 24hrs: Active Orders 24 hr Category Date Time Status Admission Status [Patient Status] [ADT] Routine ADT 05/13/20 10:55 Active Antiembolic Devices [RC] .Routine Care 05/13/20 11:46 Active Intake and Output [RC] Q12H Care 05/13/20 11:49 Active Vital Signs [RC] Q4H Care 05/13/20 11:44 Active NPO After Midnight [Nothing per Oral After Midnight Diet 05/13/20 Lunch Active Diet] [DIET] Post Gastric Surgery [Bariatric Diet] [DIET] Diet 05/13/20 Lunch Active Acetaminophen [TylenoL] Med 05/13/20 12:05 Active 650 mg PO Q4H PRN Acetaminophen [Tylenol] Med 05/13/20 12:09 Active 650 mg RECTAL Q4H PRN Dextrose 5%-Lactated Ringers 1,000 ml Med 05/13/20 12:15 Active IV ASDIRECTED Linezolid [Zyvox] 600 mg Med 05/13/20 13:00 Active Premix Bag 1 bag IV Q12H Meropenem [Merrem] 500 mg Med 05/13/20 12:00 Active Sodium Chloride 0.9% [Normal Saline] 50 ml IV Q6H SCD [Sequential Compression Device] [OM.PC] Routine Oth 05/13/20 11:46 Ordered Medication Orders Acetaminophen (Acetaminophen 325 Mg Tab) 650 mg PO Q4H PRN PRN Reason: PAIN/FEVER Acetaminophen (Acetaminophen 650 Mg Supp) 650 mg RECTAL Q4H PRN PRN Reason: PAIN/FEVER Dextrose/Lactated Ringer's (Dextrose 5%-Lactated Ringers) 1,000 mls @ 25 mls/hr IV ASDIRECTED ALISA Last Admin: 05/13/20 13:41 Dose: 25 mls/hr Documented by: MARTINEZ Meropenem 500 mg/ Sodium (Chloride) 50 mls @ 100 mls/hr IV Q6H [facility] Last Admin: 05/13/20 13:43 Dose: 100 mls/hr Documented by: MARTINEZ Linezolid 600 mg/ Premix 300 mls @ 300 mls/hr IV Q12H [facility] Last Admin: 05/13/20 14:28 Dose: 300 mls/hr Documented by: MARTINEZ Assessment: Abdominal Wall Seroma Plan: Admit to [facility] for Observation Scheduled: Incision and Drainage of Abdominal Seroma - 05/14/20 IV Sedation Francisco Ewing MD NPO after MN Rx Meropenem 500 mg every 6 hours IV Rx Zyvox 600 mg every 12 hours IV Check Labs and COVID testing Plan discharge after procedure tomorrow. Lilliana Green 05/13/2020 - Mortality Measure Prognosis:: Good
[2020-05-14] MEDS: Linezolid 600 MG in Premix Bag 1 BAG IV SCH ×2 (00:46→13:00)
[2020-05-14] MEDS: Meropenem 500 MG in Sodium Chloride 0.9% 50 ML IV SCH ×2 (06:04→11:33)
[2020-05-14] MEDS ORDERED: Bupivacaine 0.5% 50 ML MDV ONE (06:55)
[2020-05-14] MEDS ORDERED: Lidocaine 1% with EPINEPHrine 1:100,000 50 ML MDV ONE (06:55)
[2020-05-14] MEDS ORDERED: Meropenem 500 MG SDV ONE (06:55)
[2020-05-14] MEDS ORDERED: Pantoprazole 40 MG Tab.CR PO SCH (07:30)
[2020-05-14] MEDS ORDERED: Neostigmine Methylsulfate 1 MG/ML 5 ML Syringe ONE (07:55)
[2020-05-14] MEDS ORDERED: Rocuronium 50 MG/5 ML Vial ONE (07:55)
[2020-05-14] MEDS ORDERED: Succinylcholine 200 MG/10 ML MDV ONE (07:55)
[2020-05-14] MEDS ORDERED: Glycopyrrolate 0.2 MG/ML 5 ML MDV ONE (07:55)
[2020-05-14] MEDS ORDERED: Ondansetron 4 MG/2 ML SDV ONE (07:55)
[2020-05-14] MEDS ORDERED: Dexamethasone 4 MG/ML SDV ONE (07:55)
[2020-05-14] MEDS ORDERED: Propofol 200 MG/20 ML SDV ONE (07:55)
[2020-05-14] MEDS ORDERED: fentaNYL 250 MCG/5 ML SDV ONE (07:55)
[2020-05-14] MEDS ORDERED: fentaNYL 100 MCG/2 ML SDV ONE (10:04)
[2020-05-14 11:02] VITALS: BP 113/70; PULSE 71
--- NOTE | 2020-05-21 08:11 | OR ---
DATE OF PROCEDURE: 05/14/2020 SURGEON: Francisco Ewing MD PREOPERATIVE DIAGNOSIS: Infected seroma of abdominal wall. POSTOPERATIVE DIAGNOSIS: Infected seroma of abdominal wall with focal soft tissue necrosis. OPERATIVE PROCEDURES: 1. Incision and drainage of infected seroma of abdominal wall (83323). 2. Debridement of necrotic subcutaneous tissue, fascia, and musculature on edges of infected seroma of abdominal wall (52092). ANESTHESIA: General. INDICATIONS FOR PROCEDURE: The patient is presenting with recurrent seroma involving the right side of her panniculectomy incision. This had previously been drained with an additional drain having been placed. She presents now after having had the drain removed roughly a week ago with an obvious cellulitis and tense fullness at the stoma site. Plan will be to proceed with open drainage of this to be sure that we are securing adequate control of the infectious process. Potential risks of the procedure including further bleeding and infection, some cosmetic deformity were all reviewed and the patient wishes to proceed. DETAILS OF PROCEDURE: The patient was taken to the operating room, endotracheal anesthesia was induced. The abdomen was prepped and draped. Following the recent drain tract, forceps was placed and the skin and subcutaneous tissue overlying this was then incised. This then entered into the stromal cavity. Thin purulent material was present. Cultures of this were obtained. The incision was then extended medially to completely unroof the area of the seroma formation. Some fibrinous material was present and there was some limited soft tissue necrosis involving the subcutaneous tissue, fascia, and musculature, which was then debrided. At that point, no further problems noted. The wound was packed open with iodoform gauze and the patient taken to the recovery room in satisfactory condition without any complications. Francisco Ewing MD /[id number]
== END 2020-05-14 15:37 | disposition home or self-care (01) ==
LOC: JP.ICU 11:25 → INTOOBSV 11:25
PROVIDERS: ADMIT Surgery; ATTEND Surgery
DX: K91.872 Postprocedural seroma of a digestive system organ or structure following a digestive system procedure (principal); M79.89 Other specified soft tissue disorders; G47.30 Sleep apnea, unspecified; E66.9 Obesity, unspecified; F17.210 Nicotine dependence, cigarettes, uncomplicated; Z68.41 Body mass index [BMI] 40.0-44.9, adult; Z01.812 Encounter for preprocedural laboratory examination; Z20.822 Contact with and (suspected) exposure to COVID-19; Z88.5 Allergy status to narcotic agent; Z79.899 Other long term (current) drug therapy; Z98.84 Bariatric surgery status; Z98.51 Tubal ligation status
CPT/HCPCS: 0241U; 36415; 80053; 83735; 84100; 85027; 87070; 87075; 87077; 87186; 87205; 88304; 96365; 96367; 96376; A9270-GY; G0378; J0330; J1100; J2020; J2185; J2405; J2704; J2710; J3010; J3490; J7121

== ENCOUNTER 2020-10-15 17:02 | Emergency (ER) | payer MEDICAID ==
[2020-10-15 17:32] VITALS: BP 137/80; PULSE 67
--- NOTE | 2020-10-15 18:47 | EDM.PDOC ---
ED HPI GENERAL MEDICAL PROBLEM - General Chief Complaint: Abdominal Pain Stated Complaint: PAIN IN R SIDE Time Seen by Provider: 10/15/20 18:40 Source of Information: Reports: Other (Patient not evaluated, left prior to examination/being seen) Right Abdomen Pain Score (Numeric/FACES): 6 - Related Data Allergies Allergy/AdvReac Type Severity Reaction Status Date / Time hydromorphone HCl AdvReac Intermediate Nausea Verified 10/15/20 17:39 [From Dilaudid] Home Meds: Home Meds Cyanocobalamin (Vitamin B-12) [Vitamin B-12] 1,000 mcg SL DAILY 01/31/17 [History] Pediatric Multivitamin Comb#30 [Gummies Children Multivitamin] 1 tab PO BID 01/31/17 [History] Cholecalciferol (Vitamin D3) [Vitamin D] 50,000 unit PO .MWF 12/18/18 [History] Omeprazole Magnesium [Prilosec Otc] 40 mg PO DAILY 12/18/18 [History] cephALEXin [Cephalexin] 500 mg PO TID 10/15/20 [History] Past Medical History HEENT History: Reports: Impaired Vision Respiratory History: Reports: Sleep Apnea Gastrointestinal History: Reports: GERD, Hiatal Hernia Genitourinary History: Reports: None 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 COMMODITY BROKER 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 tied Musculoskeletal History: Reports: None Endocrine/Metabolic History: Reports: Obesity/BMI 30+ Hematologic History: Reports: Iron Deficiency - Infectious Disease History Infectious Disease History: Reports: Chicken Pox - Past Surgical History Head Surgeries/Procedures: Reports: None HEENT Surgical History: Reports: None Respiratory Surgical History: Reports: None GI Surgical History: Reports: Bariatric Procedure, Hernia Repair/Other, Other (See Below) Other GI Surgeries/Procedures: umbilical fatty mass removed, hx gastric sleeve, panniculectomy Female Surgical History: Reports: Tubal Ligation Endocrine Surgical History: Reports: None Musculoskeletal Surgical History: Reports: Carpal Tunnel Dermatological Surgical History: Reports: None Social & Family History - Family History Family Medical History: No Pertinent Family History : Reports: Renal Calculus Oncologic: Reports: Lung - Tobacco Use Tobacco Use Status *Q: Heavy Tobacco User Years of Tobacco use: 20 Packs/Tins Daily: 1 - Caffeine Use Caffeine Use: Reports: Coffee - Recreational Drug Use Recreational Drug Use: No ED ROS GENERAL - Review of Systems Review Of Systems: Unable To Obtain Reason Not Obtained: Patient left prior to being seen/evaluated ED EXAM, GI/ABD - Physical Exam Exam: See Below Reason Not Obtained: left prior to being seen/evaluated Course - Vital Signs Last Recorded V/S: Last Vital Signs Temp 36.3 C 10/15/20 17:46 Pulse 67 10/15/20 17:46 Resp 18 10/15/20 17:46 BP 137/80 10/15/20 17:46 Pulse Ox 98 10/15/20 17:46 Departure - Departure Time of Disposition: 18:40 Disposition: Left Without Being Seen 07 Clinical Impression: Evaluation not indicated - Discharge Information Referrals: Chata Krishnan CNM [Primary Care Provider] - Forms: ED Department Discharge Sepsis Event Note (ED) - Evaluation Sepsis Screening Result: No Definite Risk - Focused Exam Vital Signs: Vital Signs Temp Pulse Resp BP Pulse Ox 10/15/20 17:46 36.3 C 67 18 137/80 98 10/15/20 17:31 36.3 C 67 18 137/80 98 - Assessment/Plan Assessment:: Left without being seen/evaluated
== END 2020-10-15 18:41 | disposition left against medical advice (07) ==
LOC: JP.ED 17:02
DX: R10.9 Unspecified abdominal pain (principal); K21.9 Gastro-esophageal reflux disease without esophagitis; E66.9 Obesity, unspecified; Z68.41 Body mass index [BMI] 40.0-44.9, adult; Z72.0 Tobacco use; Z88.5 Allergy status to narcotic agent; Z79.899 Other long term (current) drug therapy
CPT/HCPCS: 99283

== ENCOUNTER 2021-05-18 20:59 | Emergency (ER) | payer MEDICAID ==
[2021-05-18 21:09] VITALS: PULSE 96
[2021-05-18] MEDS ORDERED: Sodium Chloride 0.9% 10 ML Syringe FLUSH PRN (21:30)
[2021-05-18 21:45] VITALS: BP 150/76
== END 2021-05-18 22:36 | disposition home or self-care (01) ==
LOC: JP.ED 20:59
DX: A09 Infectious gastroenteritis and colitis, unspecified (principal); K21.9 Gastro-esophageal reflux disease without esophagitis; E66.9 Obesity, unspecified; Z68.41 Body mass index [BMI] 40.0-44.9, adult; Z88.5 Allergy status to narcotic agent; Z79.899 Other long term (current) drug therapy; Z72.0 Tobacco use
CPT/HCPCS: 36415; 74019; 74019-26; 80048; 80076; 85025; 86140; 99282; 99284

== ENCOUNTER 2022-06-11 14:33 | Emergency (ER) | payer MEDICAID ==
[2022-06-11 14:52] VITALS: BP 123/77; PULSE 57
== END 2022-06-11 15:04 | disposition home or self-care (01) ==
LOC: JP.ED 14:33
DX: M79.602 Pain in left arm (principal); E66.9 Obesity, unspecified; F17.210 Nicotine dependence, cigarettes, uncomplicated; Z88.5 Allergy status to narcotic agent; Z68.42 Body mass index [BMI] 45.0-49.9, adult
CPT/HCPCS: 99282; 99283

== ENCOUNTER 2023-02-06 21:35 | Emergency (ER) | payer MEDICAID ==
[2023-02-06 22:14] LABS: BASOPHILS ABSOLUTE AUTO 0.03 K/uL (0.00-0.10); BASOPHILS PERCENT AUTO 0.3 % (0.1-1.3); EOSINOPHILS ABSOLUTE AUTO 0.14 K/uL (0.00-0.40); EOSINOPHILS PERCENT AUTO 1.4 % (0.0-5.4); HEMATOCRIT 46.2 % (34.3-46.0); IMMATURE GRAN ABSOLUTE AUTO 0.02 K/uL (0.00-0.23); IMMATURE GRAN PERCENT AUTO 0.2 % (0.0-0.7); LYMPHOCYTES PERCENT AUTO 18.3 % (11.4-47.7); MEAN CORPUSCULAR HEMOGLOBIN 30.8 pg (31.6-35.5); MEAN CORPUSCULAR HGB CONC 34.6 g/dL (31.6-35.5); MEAN CORPUSCULAR VOLUME 88.8 fL (81.4-99.0); MONOCYTES ABSOLUTE AUTO 0.35 K/uL (0.20-0.90); MONOCYTES PERCENT AUTO 3.4 % (3.3-12.6); NEUTROPHILS ABSOLUTE AUTO 7.92 K/uL (1.0-7.6); NEUTROPHILS PERCENT AUTO 76.4 % (40.0-78.1); PLATELET COUNT,PLT 185 K/uL (130-375); WHITE BLOOD CELL COUNT,WBC 10.4 K/uL (3.2-11.0)
[2023-02-06] MEDS: Sodium Chloride 0.9% 1,000 ML IV SCH (22:22)
[2023-02-06] MEDS: Ondansetron 4 MG/2 ML SDV IVPUSH ONE (22:22)
[2023-02-06] MEDS: Sodium Chloride 0.9% 10 ML Syringe FLUSH PRN (22:22)
[2023-02-06 22:38] LABS: A/G RATIO 1.3 (1.2-2.2); ALANINE AMINOTRANSFERASE,ALT 23 U/L (12-78); ALBUMIN 4.4 g/dL (3.4-5.0); ALKALINE PHOSPHATASE 62 U/L (46-116); ASPARTATE AMNIOTRANSFERASE,AST 12 U/L (15-37); BILIRUBIN TOTAL 0.4 mg/dL (0.2-1.0); BLOOD UREA NITROGEN,BUN 22 mg/dL (7-18); CALCIUM 9.2 mg/dL (8.5-10.1); CARBON DIOXIDE,CO2 22 mmol/L (21-32); CHLORIDE,CL 103 mmol/L (100-108); CREATININE 1.1 mg/dL (0.6-1.0); EST CRCL DRUG DOSING (CG) 56.28 mL/min; ESTIMATED GFR 62 mL/min (>60); GLUCOSE RANDOM 148 mg/dL (74-106); POTASSIUM,K 3.4 mmol/L (3.6-5.2); PROTEIN TOTAL,TP 7.9 g/dL (6.4-8.2); SODIUM,NA 138 mmol/L (140-148)
[2023-02-06 22:41] LABS: LACTIC ACID 1.4 mmol/L (0.4-2.0)
[2023-02-06 22:42] LABS: ANION GAP 16.4 mmol/L (5.0-14.0); C-REACTIVE PROTEIN < 0.50 mg/dL (<0.50)
[2023-02-06] MEDS: Sodium Chloride 0.9% 80 ML IV ONE (22:43)
[2023-02-06] MEDS: Iopamidol 612 MG/ML 100 ML Bottle IV ONE (22:43)
[2023-02-06] MEDS: Sodium Chloride 0.9% 10 ML Syringe FLUSH ONE (22:43)
[2023-02-06 22:48] LABS: CORONAVIRUS COVID-19 NAA NEGATIVE (NEGATIVE); INFLUENZA A NAA NEGATIVE (NEGATIVE); INFLUENZA B NAA NEGATIVE (NEGATIVE); RESPIRATORY SYNCYTIAL VIR NAA NEGATIVE (NEGATIVE)
[2023-02-06 23:00] VITALS: BP 121/93; PULSE 84
== END 2023-02-07 00:23 | disposition home or self-care (01) ==
LOC: JP.ED 21:35
DX: A08.4 Viral intestinal infection, unspecified (principal); E66.9 Obesity, unspecified; Z20.822 Contact with and (suspected) exposure to COVID-19; Z88.8 Allergy status to other drugs, medicaments and biological substances; Z68.39 Body mass index [BMI] 39.0-39.9, adult
CPT/HCPCS: 0241U; 36415; 74177; 80053; 83605; 84145; 85025; 86140; 87040; 96361; 96374; 99284; J2405; J3490; J7030; Q9967

== ENCOUNTER 2024-04-16 06:32 | Day surgery (SDC) | payer MEDICAID ==
[2024-04-16 06:58] LABS: HEMATOCRIT 40.2 % (34.3-46.0); HEMOGLOBIN 13.4 g/dL (11.2-15.5); MEAN CORPUSCULAR HEMOGLOBIN 30.3 pg (31.6-35.5); MEAN CORPUSCULAR HGB CONC 33.3 g/dL (31.6-35.5); RED BLOOD CELL COUNT 4.42 M/uL (3.77-5.24); WHITE BLOOD CELL COUNT,WBC 5.6 K/uL (3.2-11.0)
[2024-04-16] MEDS ORDERED: Sodium Chloride 0.9% 1,000 ML IV SCH (07:00)
[2024-04-16] MEDS ORDERED: Glycopyrrolate 0.2 MG/ML 5 ML MDV ONE (07:09)
[2024-04-16] MEDS ORDERED: Dexamethasone 4 MG/ML SDV ONE (07:09)
[2024-04-16] MEDS ORDERED: Succinylcholine 200 MG/10 ML MDV ONE (07:09)
[2024-04-16] MEDS ORDERED: Rocuronium 50 MG/5 ML Vial ONE (07:09)
[2024-04-16] MEDS ORDERED: Propofol 200 MG/20 ML SDV ONE (07:09)
[2024-04-16] MEDS ORDERED: Neostigmine Methylsulfate 10 MG/10 ML MDV ONE (07:09)
[2024-04-16] MEDS ORDERED: Ondansetron 4 MG/2 ML SDV ONE (07:09)
[2024-04-16] MEDS ORDERED: fentaNYL 250 MCG/5 ML SDV ONE (07:10)
[2024-04-16 07:20] LABS: A/G RATIO 1.2 (1.2-2.2); ALANINE AMINOTRANSFERASE,ALT 21 U/L (12-78); ALBUMIN 3.9 g/dL (3.4-5.0); ALKALINE PHOSPHATASE 56 U/L (46-116); ANION GAP 8.3 mmol/L (5.0-14.0); ASPARTATE AMNIOTRANSFERASE,AST 16 U/L (15-37); BILIRUBIN TOTAL 0.6 mg/dL (0.2-1.0); BLOOD UREA NITROGEN,BUN 19 mg/dL (7-18); CALCIUM 9.1 mg/dL (8.5-10.1); CARBON DIOXIDE,CO2 27 mmol/L (21-32); CHLORIDE,CL 108 mmol/L (100-108); CREATININE 0.9 mg/dL (0.6-1.0); EST CRCL DRUG DOSING (CG) 65.29 mL/min; ESTIMATED GFR 78 mL/min (>60); GLUCOSE RANDOM 82 mg/dL (74-106); PROTEIN TOTAL,TP 7.1 g/dL (6.4-8.2); SODIUM,NA 143 mmol/L (140-148)
[2024-04-16] MEDS: Lactated Ringers 1,000 ML IV SCH (07:34)
[2024-04-16] MEDS: Indocyanine Green 25 MG SDV IV ONE (07:35)
[2024-04-16] MEDS: metroNIDAZOLE/Normal Saline 500 MG in Premix Bag 1 BAG IV ONE (07:36)
[2024-04-16] MEDS: ceFAZolin 2 GM in Premix Bag 1 BAG IV ONE (08:20)
[2024-04-16] MEDS ORDERED: fentaNYL 100 MCG/2 ML SDV ONE (08:23)
[2024-04-16] MEDS: Ropivacaine 50 ML, dexAMETHasone 8 MG, EPINEPHrine 0.4 MG, Sodium Chloride 0.9% 27.6 ML NERVRT SCH (08:40)
[2024-04-16] MEDS: Bupivacaine 0.5% 50 ML MDV ONE (08:50)
[2024-04-16] MEDS: Lidocaine 1% with EPINEPHrine 1:100,000 50 ML MDV ONE (08:51)
[2024-04-16] MEDS ORDERED: Lactated Ringers 1,000 ML ONE (10:00)
[2024-04-16] MEDS: fentaNYL 50 MCG/ML SDV IVPUSH ONE (10:57)
[2024-04-16] MEDS: hydrOXYzine HCL 100 MG/2 ML SDV IM ONE (11:04)
[2024-04-16] MEDS: Acetaminophen/HYDROcodone 325-5 MG Tab PO PRN (11:48)
[2024-04-16] MEDS: Ibuprofen 400 MG Tab PO ONE (11:48)
[2024-04-16 12:38] VITALS: BP 104/58; PULSE 75
== END 2024-04-16 13:20 | disposition home or self-care (01) ==
LOC: JP.SDS 06:32
PROVIDERS: ATTEND Surgery
DX: K80.10 Calculus of gallbladder with chronic cholecystitis without obstruction (principal); K43.0 Incisional hernia with obstruction, without gangrene; E78.00 Pure hypercholesterolemia, unspecified; E66.9 Obesity, unspecified; Z79.899 Other long term (current) drug therapy; Z88.8 Allergy status to other drugs, medicaments and biological substances
CPT/HCPCS: 00790; 36415; 47563; 49594; 80053; 84703; 85027; 88305; A9270; C1765; J0171; J0330; J0665; J0690; J1100; J1596; J1836; J2405; J2704; J2710; J2795; J3010; J3410; J7120; J3490

== ENCOUNTER 2024-11-27 06:41 | Day surgery (SDC) | payer MEDICAID ==
[2024-11-27] MEDS ORDERED: Lidocaine 1% with EPINEPHrine 1:100,000 50 ML MDV ONE (06:46)
[2024-11-27] MEDS ORDERED: fentaNYL 50 MCG/ML SDV ONE (07:01)
[2024-11-27] MEDS ORDERED: Propofol 200 MG/20 ML SDV ONE ×3 (07:01→10:00)
[2024-11-27] MEDS ORDERED: Midazolam 1 MG/ML 2 ML SDV ONE (07:01)
[2024-11-27] MEDS: Lactated Ringers 1,000 ML IV SCH (07:01)
[2024-11-27 10:08] VITALS: BP 119/61; PULSE 75
== END 2024-11-27 10:13 | disposition home or self-care (01) ==
LOC: JP.SDS 06:41
PROVIDERS: ATTEND Surgery
DX: L90.5 Scar conditions and fibrosis of skin (principal); L08.9 Local infection of the skin and subcutaneous tissue, unspecified; S31.109A Unspecified open wound of abdominal wall, unspecified quadrant without penetration into peritoneal cavity, initial encounter; E66.9 Obesity, unspecified; Z88.8 Allergy status to other drugs, medicaments and biological substances; Z68.41 Body mass index [BMI] 40.0-44.9, adult; Z79.899 Other long term (current) drug therapy
CPT/HCPCS: 11402; 11406; J0169; J0665; J0690; J1100; J2250; J2704; J2795; J3010; J7120; 00400-QZ

== ENCOUNTER 2024-11-29 18:52 | Emergency (ER) | payer MEDICAID ==
[2024-11-29 20:44] VITALS: BP 118/65; PULSE 68
== END 2024-11-29 21:32 | disposition home or self-care (01) ==
LOC: JP.ED 18:52
DX: T81.31XA Disruption of external operation (surgical) wound, not elsewhere classified, initial encounter (principal); K21.9 Gastro-esophageal reflux disease without esophagitis; E66.9 Obesity, unspecified; F17.200 Nicotine dependence, unspecified, uncomplicated; Z88.8 Allergy status to other drugs, medicaments and biological substances; Z79.899 Other long term (current) drug therapy
CPT/HCPCS: 99283